=== PATIENT | female | born 1975 | race Caucasian/White ===

== ENCOUNTER 2019-04-10 18:53 | Inpatient (IN) | payer OTHER ==
[~2019-04-10] VITALS: Ht 170.2 cm; Wt 76.7 kg
[2019-04-10] MEDS ORDERED: ONDANSETRON HCL INJ 2MG/ML 2ML 2 MG/ML VIAL IV STA (19:20)
[2019-04-10] MEDS ORDERED: PANTOPRAZOLE 40 MG 10ML VIAL IV STA (19:20)
[2019-04-10] MEDS ORDERED: SODIUM CHLORIDE 0.9% 1000ML 1,000 ML IV STA ×2 (19:20→19:48)
[2019-04-10] MEDS ORDERED: PANTOPRAZOLE 40 MG 10ML VIAL ONE (19:26)
[2019-04-10] MEDS ORDERED: ONDANSETRON HCL INJ 2MG/ML 2ML 2 MG/ML VIAL ONE (19:26)
[2019-04-10] MEDS ORDERED: SODIUM CHLORIDE 0.9% 1000ML 1,000 ML ONE (19:26)
[2019-04-10 19:27] LABS: BASOPHILS % 0.2 % (0.0-1.0); EOSINOPHILS # (AUTO) 0.1 (0.0-0.4); EOSINOPHILS % 0.3 % (0.0-6.0); HEMATOCRIT 36.2 % (34.2-44.1); HEMOGLOBIN 12.1 g/dL (12.0-16.0); LYMPHOCYTES # (AUTO) 0.7 (1.0-3.2); LYMPHOCYTES % 5.1 % (18.0-39.1); MEAN CORPUSCULAR HEMOGLOBIN 27.9 pg (28-32); MEAN CORPUSCULAR HGB CONC 33.4 g/dL (31-35); MEAN CORPUSCULAR VOLUME 83.6 fL (81-99); MONOCYTES # (AUTO) 1.5 (0.2-0.8); MONOCYTES % 10.2 % (4.4-11.3); NEUTROPHILS # (AUTO) 11.9 (2.1-6.9); NEUTROPHILS % 83.2 % (38.7-80.0); RED BLOOD COUNT 4.33 x10e6/uL (3.6-5.1)
[2019-04-10 19:29] LABS: PLATELET COUNT 69 x10e3/uL (140-360)
[2019-04-10 19:30] LABS: CLARITY,URINE CLOUDY (CLEAR); COLOR,URINE YELLOW (YELLOW)
[2019-04-10 19:31] LABS: BILIRUBIN,URINE 1+ (NEGATIVE); KETONES,URINE NEGATIVE (NEGATIVE); LEUKOCYTE ESTERASE ,URINE 2+ (NEGATIVE); NITRITE,URINE NEGATIVE (NEGATIVE); PROTEIN,URINE DIPSTICK 2+ (NEGATIVE); URINE UROBILINOGEN 0.2 mg/dL (0.2 - 1)
[2019-04-10 19:43] LABS: INR 1.01; PROTHROMBIN TIME 13.8 seconds (11.9-14.5)
[2019-04-10 19:44] LABS: BACTERIA,URINE MANY /HPF; EPITHELIAL CELLS,URINE FEW /LPF
[2019-04-10 19:48] LABS: ALBUMIN 2.1 g/dL (3.5-5.0); ALBUMIN/GLOBULIN RATIO 0.5 (0.8-2.0); ANION GAP 19.7 mmol/L (8-16); CALCIUM 8.8 mg/dL (8.4-10.2); CREATININE, SERUM 7.02 mg/dL (0.57-1.11); POTASSIUM 3.7 mmol/L (3.5-5.1)
[2019-04-10] MEDS ORDERED: KETOROLAC TROMETHAMINE 30 MG/ML VIAL IV STA (19:48)
[2019-04-10 19:49] LABS: MAGNESIUM 2.3 MG/DL (1.3-2.1)
[2019-04-10 19:56] LABS: CREATINE KINASE MB 0.7 ng/mL (0-5.0)
[2019-04-10] MEDS ORDERED: SODIUM BICARBONATE 8.4% 75 ML in SODIUM CHLORIDE 0.45% 1,000 ML IV SCH (20:45)
--- NOTE | 2019-04-10 20:54 | Diagnostic Imaging Report ---
EXAM: CT Abdomen and Pelvis without contrast INDICATION: Pelvis. Vomiting. Renal failure. Chest pain. Appendectomy. COMPARISON: None. TECHNIQUE: Abdomen and pelvis were scanned utilizing a multidetector helical scanner from the lung base to the pubic symphysis without administration of IV contrast. Coronal and sagittal reformations were obtained. Routine protocol was performed. IV CONTRAST: None ORAL CONTRAST: Water RADIATION DOSE: Total DLP: 499 mGy*cm Estimated effective dose: (DLP x 0.015 x size factor) mSv. Dose modulation, iterative reconstruction and weight base adjustment of the MA/KV was utilized to reduce the patient dose to as low as reasonably achievable COMPLICATIONS: None FINDINGS: LINES and TUBES: Breast implants. The right breast implant is collapsed. LOWER THORAX: Unremarkable HEPATOBILIARY: No focal hepatic lesions. No biliary ductal dilation. GALLBLADDER: Gallstones in the lumen of the gallbladder. No wall thickening. SPLEEN: No splenomegaly. PANCREAS: No focal masses or ductal dilatation. ADRENALS: No adrenal nodules KIDNEYS/URETERS: Kidneys enhance symmetrically. No hydronephrosis. No cystic or solid mass lesions. No stones. Perinephric fat stranding could be due to chronic medical renal disease GI TRACT: No abnormal distention, wall thickening, or evidence of bowel obstruction. Scattered diverticulosis without evidence of diverticulitis PELVIC ORGANS/BLADDER: 4.1 cm right ovary cyst. LYMPH NODES: No lymphadenopathy. VESSELS: Unremarkable. PERITONEUM / RETROPERITONEUM: No free air. Small amount of ascites most pronounced in the pelvis BONES: Scattered degenerative changes most pronounced in the lumbar spine. SOFT TISSUES: Periumbilical hernia with small nonspecific fluid collection. IMPRESSION: 1. 4.1 cm right ovarian cyst. Pelvic ultrasound recommended for further evaluation. 2. Scattered diverticulosis without evidence of diverticulitis. 3. Gallstones. 4. Perinephric fat stranding could be due to chronic medical renal disease. Small amount of ascites most pronounced in the pelvis. 5. Signed by: Dr. Tyrese Flores M.D. on 04/10/2019 8:50 PM
[2019-04-10] MEDS: CEFTRIAXONE SOD 1 GM/NS 50 ML 50 ML IV SCH (20:57)
--- NOTE | 2019-04-10 20:57 | Diagnostic Imaging Report ---
EXAMINATION: CHEST 2 VIEWS INDICATION: Chest pain ^cp ^20190410 ^2044 COMPARISON: None FINDINGS: TUBES and LINES: None. LUNGS: Lungs are well inflated. Lungs are clear. There is no evidence of pneumonia or pulmonary edema. PLEURA: No pleural effusion or pneumothorax. HEART AND MEDIASTINUM: The cardiomediastinal silhouette is unremarkable. BONES AND SOFT TISSUES: No acute osseous lesion. Soft tissues are unremarkable. UPPER ABDOMEN: No free air under the diaphragm. IMPRESSION: No acute thoracic abnormality. Signed by: Dr. Tyrese Flores M.D. on 04/10/2019 8:54 PM
--- OUTSIDE RECORDS SUMMARY | 2019-04-10 21:42 | XMS REPORT ---
Author Author [facility] Address Unknown Phone Unavailable Care Team Providers Care Registered Nursing Professor Name Role Phone Simin ALEJANDRE Unavailable Unavailable Problems This patient has no known problems. Allergies, Adverse Reactions, Alerts This patient has no known allergies or adverse reactions. Medications This patient has no known medications. Results Test Description Test Time Test Comments Text Results Atomic Results Result Comments CHEST 2 VIEWS 2019-04-10 20:50:00 [facility] [address] [place] [address] Patient Name: ZA NAPOLES MR #: [id number] : 1975 Age/Sex: 44/F Req #: [id number] [facility] Physician: Ordered by: KAYLEIGH ALEJANDRE MD Report #: [id number] Location: ER Room/Bed: Procedure: [id number] DX/CHEST 2 VIEWS Exam Date: 04/10/19 Exam Time: 2044 REPORT STATUS: Signed EXAMINATION: CHEST 2 VIEWS INDICATION: Chest pain cp 20190410 COMPARISON: None FINDINGS: TUBES and LINES: None. LUNGS: Lungs are well inflated. Lungs are clear. There is no evidence of pneumonia or pulmonary edema. PLEURA: No pleural effusion or pneumothorax. HEART AND MEDIASTINUM: The cardiomediastinal silhouette is unremarkable. BONES AND SOFT TISSUES: No acute osseous lesion. Soft tissues are unremarkable. UPPER ABDOMEN: No free air under the diaphragm. IMPRESSION: No acute thoracic abnormality. Signed by: Dr. Tyrese Flores M.D. on 04/10/2019 8:54 PM Dictated By: TYRESE FLORES MD, MD 53 Transcribed By: DOUG on 04/10/192053 COPY TO: KAYLEIGH ALEJANDRE MD CT ABDOMEN/PELVIS WO 2019-04-10 20:42:00 [place] [id number] Patient Name: ZA NAPOLES MR #: [id number] : 1975 Age/Sex: 44/F Req #: [id number] Adm Physician: Ordered by: KAYLEIGH ALEJANDRE MD Report #: [id number] Location: ER Room/Bed: Procedure: [id number] CT/CT ABDOMEN/PELVIS WO Exam Date: Exam Time: REPORT STATUS: Signed EXAM: CT Abdomen and Pelvis without contrast INDICATION: Pelvis. Vomiting. Renal failure. Chest pain. Appendectomy. COMPARISON: None. TECHNIQUE: Abdomen and pelvis were scanned utilizing a multidetector helical scanner from the lung base to the pubic symphysis without administration of IV contrast. Coronal and sagittal reformations were obtained. Routine protocol was performed. IV CONTRAST: None ORAL CONTRAST: Water RADIATION DOSE: Total DLP: 499 mGy*cm Estimated effective dose: (DLP x 0.015 x size factor) mSv. Dose modulation, iterative reconstruction and weight base adjustment of the MA/KV was utilized to reduce the patient dose to as low as reasonably achievable COMPLICATIONS: None FINDINGS: LINES and TUBES: Breast implants. The right breast implant is collapsed. LOWER THORAX: Unremarkable HEPATOBILIARY: No focal hepatic lesions. No biliary ductal dilation. GALLBLADDER: Gallstones in the lumen of the gallbladder. No wall thickening. SPLEEN: No splenomegaly. PANCREAS: No focal masses or ductal dilatation. ADRENALS: No adrenal nodules KIDNEYS/URETERS: Kidneys enhance symmetrically. No hydronephrosis. No cystic or solid mass lesions. No stones. Perinephric fat stranding could be due to chronic medical renal disease GI TRACT: No abnormal distention, wall thickening, or evidence of bowel obstruction. Scattered diverticulosis without evidence of diverticulitis PELVIC ORGANS/BLADDER: 4.1 cm right ovary cyst. LYMPH NODES: No lymphadenopathy. VESSELS: Unremarkable. PERITONEUM / RETROPERITONEUM: No free air. Small amount of ascites most pronounced in the pelvis BONES: Scattered degenerative changes most pronounced in the lumbar spine. SOFT TISSUES: Periumbilical hernia with small nonspecific fluid collection. IMPRESSION: 1. 4.1 cm right ovarian cyst. Pelvic ultrasound recommended for further evaluation. 2. Scattered diverticulosis without evidence of diverticulitis. 3. Gallstones. 4. Perinephric fat stranding could be due to chronic medical renal disease. Small amount of ascites most pronounced in the pelvis. 5. Signed by: Dr. Tyrese Flores M.D. on 04/10/2019 8:50 PM Dictated By: TYRESE FLORES MD, MD 49 Transcribed By: DOUG on 04/10/192049 COPY TO: KAYLEIGH ALEJANDRE MD
--- NOTE | 2019-04-10 21:51 | NUR ---
REPORT RECEIVED FROM ABRIL CUMMINGS IN ER,PER REPORT FROM ABRIL CONSULT TO DR MÁRQUEZ ALREADY CALLED AND ER DOCTOR AWARE OF THE D DIMER RESULT.
[2019-04-10] MEDS ORDERED: ACETAMINOPHEN 1000 MG/100 ML IV PRN (22:00)
[2019-04-10 22:17] VITALS: BP 147/68
[2019-04-10] MEDS: ONDANSETRON HCL INJ 2MG/ML 2ML 2 MG/ML VIAL IV PRN (22:46)
[2019-04-10] MEDS: MORPHINE SULFATE 2 MG/ML SYR 1ML IV PRN (22:48)
[2019-04-10] MEDS ORDERED: ZOLPIDEM TART12.5 MG PO (23:00)
[2019-04-10] MEDS ORDERED: PROMETHAZINE HC25 M1 PO (23:00)
[2019-04-10] MEDS ORDERED: NITROFURANTOIN100 MG PO (23:00)
[2019-04-10] MEDS ORDERED: IBUPROFEN400 MG PO (23:00)
[2019-04-10] MEDS ORDERED: TIZANIDINE HCL4 MG PO (23:00)
[2019-04-10 23:06] VITALS: BP 147/68
[2019-04-11] VITALS (7 sets, daily range): BP systolic 123–134; BP diastolic 58–79
[2019-04-11] MEDS: MORPHINE SULFATE 2 MG/ML SYR 1ML IV PRN (02:14)
[2019-04-11] MEDS: ONDANSETRON HCL INJ 2MG/ML 2ML 2 MG/ML VIAL IV PRN (02:54)
[2019-04-11 03:30] LABS: BASOPHILS % 0.2 % (0.0-1.0); EOSINOPHILS % 0.1 % (0.0-6.0); HEMATOCRIT 35.1 % (34.2-44.1); HEMOGLOBIN 11.9 g/dL (12.0-16.0); LYMPHOCYTES # (AUTO) 0.7 (1.0-3.2); LYMPHOCYTES % 4.7 % (18.0-39.1); MEAN CORPUSCULAR HEMOGLOBIN 28.2 pg (28-32); MEAN CORPUSCULAR HGB CONC 33.9 g/dL (31-35); MEAN CORPUSCULAR VOLUME 83.2 fL (81-99); MONOCYTES # (AUTO) 1.4 (0.2-0.8); MONOCYTES % 9.7 % (4.4-11.3); NEUTROPHILS # (AUTO) 11.8 (2.1-6.9); NEUTROPHILS % 83.3 % (38.7-80.0); PLATELET COUNT 61 x10e3/uL (140-360); RED BLOOD COUNT 4.22 x10e6/uL (3.6-5.1); RED CELL DISTRIBUTION WIDTH 15.2 % (11.7-14.4)
[2019-04-11 03:44] LABS: ALBUMIN 1.8 g/dL (3.5-5.0); ALBUMIN/GLOBULIN RATIO 0.5 (0.8-2.0); ANION GAP 20.4 mmol/L (8-16); CREATININE, SERUM 6.5 mg/dL (0.57-1.11); POTASSIUM 3.4 mmol/L (3.5-5.1)
[2019-04-11] MEDS: HYDROMORPHONE 1MG/1ML INJ IV PRN ×5 (06:47→23:30)
--- NOTE | 2019-04-11 07:13 | NUR ---
REPORT GIVEN TO ONCOMING NURSE.WALKING ROUNDS MADE.PT RESTING IN BED WITH NO S/S OF DISTRESS.
[2019-04-11] MEDS: CEFTRIAXONE SOD 1 GM/NS 50 ML 50 ML IV SCH ×2 (08:58→20:25)
[2019-04-11] MEDS: PROMETHAZINE 25MG/ NS 50ML (IV) IV PRN ×4 (09:41→23:30)
[2019-04-11] MEDS: SODIUM BICARBONATE 8.4% 75 ML in SODIUM CHLORIDE 0.45% 1,000 ML IV SCH ×2 (09:45→20:25)
[2019-04-11 11:53] LABS: CREATINE KINASE < 7 IU/L (29-168)
--- NOTE | 2019-04-11 13:38 | NUR ---
Nutrition Intervention Note RD Recommendation(s) for Physician: -ADAT to GI soft. -Consider renal restriction pending renal lab trends. Plan of Care: RD following, monitoring for tolerance and adequacy. Ensure Clear BID. Nutrition reason for involvement: MST-4 RD Assessment 04/11: 44 YOF admitted for acute renal failure, dehydration with PMH listed below. Pt was seen lying in bed with at bedside. Clear liquid tray was observed next to her, pt is on IVF. The pt reported that she can not keep anything down and she has had N/V since last Sunday. Pt reported she wanted to try the Ensure clear supplement, spoke to nurse about recommendation. No notes documented within EMR as of now, pt was admitted yesterday. Pt reported her weight has been stable recently and denied C/D/chewing or swallowing issues as well as any food allergies. Will continue to monitor diet advancement and tolerance. Principal Problems/Diagnoses: acute renal failure, dehydration PMH: H and P pending GI: flatus: present, LBM: 04/11 Skin: no pressure ulcer reported Labs: 04/11: Na 132, K 3.4, CO2 14, BUN 75, Creat 6.50, Ca 8.0, Alk phos 323, Creat kinase < 7 IVF: sodium bicarb at 100 ml/hr Meds: abx, zofran Ht:67 in W170 lbs BMI: 26.6 kg/m^2 IBW:148 lbs Malnutrition Evaluation (04/11) The patient does not meet criteria for a specified degree of malnutrition at this time. Will re-evaluate at follow-up as appropriate. Energy intake: <50% of estimated energy requirements for >5 days Nutrition Prescription (Diet Order): clear liquids Estimated Nutritional Needs: Calories: 1386 kcal-1694 kcal(18-22) Weight used : CBW 77 kg Protein : 77-115 gram/protein/day(1-1.5) Weight used: CBW 77 kg Diet Adequacy: Not meeting calorie needs, Not meeting protein needs Diet Education Needs Assessment: Diet education not indicated, patient on temporary/transition diet. Nutrition Care Level: mod Nutrition Diagnosis: Inadequate energy intake related to medical condition as evidenced by the pt being on clear liquids. Goal: Patient will meet 75-100% of estimated needs by follow up Progress: N/A Interventions: -fiber -modified diet, Commercial beverage, IVF Monitoring/Evaluation: -Total energy intake, Total protein intake, IVF, Modified diet, Liquid supplement, Weight change Signed: Kelsey Sanchez RD, LD
--- NOTE | 2019-04-11 17:02 | Consultation ---
DATE OF CONSULTATION: 04/11/2019 REQUESTING PHYSICIAN: Maximilian arias MD REASON FOR CONSULTATION: Acute kidney injury. Thank you for allowing us to participate in Mrs. Dejesus's care. HISTORY OF PRESENT ILLNESS: This is a 44-year-old female on chronic NSAIDs, came with abdominal pain and flank pain. Recently had a urinary tract infection that did not respond to outpatient therapy. Recently had nausea, vomiting, and diarrhea. She has chronic back issues on top of that. She had been unable to keep anything down in the last day or two due to worsening of the GI symptoms. Flank pain is more on the right than the left. CT scan does not show any hydronephrosis. She thinks she may be somewhat better and may be making more urine. She says her urine output was subjectively decreased in the last 2 to 3 days. No swelling is noted. She has been started on IV fluids during evaluation here. It was noted that she had low platelets of 69,000. Sodium of 132, potassium 3.4, serum CO2 of 14, creatinine 6.5, BUN 75. Alkaline phosphatase was 338, however, AST and ALT were not elevated. Albumin was only 1.8. Lipase was normal and total bilirubin is 1.1 and not elevated. HOME MEDICATION: Ibuprofen 800 t.i.d., nitrofurantoin, promethazine, tizanidine, Ambien. Currently on IV fluids and bicarbonate. SOCIAL HISTORY: Does not abuse alcohol or smoke. FAMILY HISTORY: No kidney problems. REVIEW OF SYSTEMS: CONSTITUTIONAL: Feels wheezy and nausea, vomiting, somewhat better with the Phenergan. CARDIAC: No angina, syncope. : Has some dysuria. MUSCULOSKELETAL: Chronic backache with flank pain. Now being worse. NEURO: Denied headaches, seizures, but had some weakness. HEENT: Had some nasal drainage and thought she had white spots. Negative for flu. PHYSICAL EXAMINATION: GENERAL: She is sitting up, in no distress. VITAL SIGNS: Temperature 36.3, pulse 85, blood pressure 125/69. HEENT: Oral mucosa is dry. NECK: Neck vein is flat. CHEST: Clear. Bilateral breath sounds equal. ABDOMEN: Soft. EXTREMITIES: No edema. NEURO: Appears to be alert, appropriate. Speech is normal. SKIN: No ulcers or sores. Skin is warm and dry. No purpura is noted. LABORATORY DATA: Check LDH. ASSESSMENT: 1. Acute kidney injury, likely causes volume depletion with tubular necrosis from the infection. There were many bacteria in the blood. Additionally, the nonsteroidal anti-inflammatories can also cause acute kidney injury and their effect was likely superimposed. On the bright side, the creatinine is slowly coming down. Output seems to be improving. 2. Hypokalemia from decreased intake, GI losses. 3. Metabolic acidosis from the diarrhea as well as decreased GFR, anion gap is high consistent with that as well as ketones from decreased intake. 4. Mild hyponatremia from volume depletion. This point does not appear to be hemolyzing as the hemoglobin is quite good at 11.9. The platelets being lower somewhat concerning and we will follow that closely. Check an LDH. 5. Volume status is decreased. 6. Blood pressure is reasonable. PLAN: 1. Continue with IV fluids. She has been started on half NS with 75 mEq/L of bicarbonate. This is reasonable. 2. Had p.o. potassium. 3. Nausea, control. 4. Avoid Ketoralac and other NSAIDs. 5. If renal function does not improve, we may have to consider biopsy, especially given the NSAID use and potential for allergic interstitial nephritis, which can happen without peripheral or eosinophils being increased or without any eosinophils in the urine. 6. Of note, this streptococcal screen was negative. 7. Serial chemistries. 8. No emergent need for dialysis. Thank you for allowing us to participate in Ms. Dejesus's care. We will follow along. MD FILIBERTO Gleason/MODL /[id number]
--- NOTE | 2019-04-11 19:15 | NUR ---
patient received awake, alert, lying quietly in bed. no c/o pain noted. ivf continue to infuse without difficulty. patient remains on clear liquid diet and patient verbalizes understanding of this. pm assessment complete. patient instructed to call for assistance when needed.
[2019-04-11 19:33] LABS: CREATINE KINASE MB 0.9 ng/mL (0-5.0)
--- NOTE | 2019-04-11 23:30 | NUR ---
patient medicated with dilaudid 1mg ivp and phenergan 25mg iv for c/o abd/lower back pain 01/08 and nausea at this time per patient request.
[2019-04-12] VITALS (7 sets, daily range): BP systolic 135–158; BP diastolic 70–91
--- NOTE | 2019-04-12 | NUR ---
patient appears to be resting quietly. no further c/o pain noted. ivf continue to infuse without difficulty. remains at the bedside.
[2019-04-12] MEDS: PROMETHAZINE 25MG/ NS 50ML (IV) IV PRN ×4 (05:00→19:50)
[2019-04-12] MEDS: HYDROMORPHONE 1MG/1ML INJ IV PRN ×5 (05:00→19:50)
--- NOTE | 2019-04-12 05:00 | NUR ---
patient medicated with dilaudid 1mg ivp and phenergan 25mg iv for c/o lower abd/back pain 01/08 at this time per patient request. ivf continue to infuse without difficulty.
--- NOTE | 2019-04-12 06:00 | NUR ---
here to see patient. am labs ordered. wants to be called am labs when resulted.
[2019-04-12 06:59] LABS: ANION GAP 19.4 mmol/L (8-16); CALCIUM 7.4 mg/dL (8.4-10.2); CREATININE, SERUM 6.04 mg/dL (0.57-1.11); MAGNESIUM 2.2 MG/DL (1.3-2.1); PHOSPHORUS 5.7 MG/DL (2.3-4.7); POTASSIUM 3.4 mmol/L (3.5-5.1)
[2019-04-12 07:00] LABS: BASOPHILS % 0.2 % (0.0-1.0); EOSINOPHILS # (AUTO) 0.1 (0.0-0.4); EOSINOPHILS % 0.6 % (0.0-6.0); HEMATOCRIT 33.1 % (34.2-44.1); HEMOGLOBIN 11.2 g/dL (12.0-16.0); LYMPHOCYTES # (AUTO) 0.6 (1.0-3.2); LYMPHOCYTES % 6.1 % (18.0-39.1); MEAN CORPUSCULAR HEMOGLOBIN 28.1 pg (28-32); MEAN CORPUSCULAR HGB CONC 33.8 g/dL (31-35); MONOCYTES # (AUTO) 0.8 (0.2-0.8); NEUTROPHILS # (AUTO) 8.4 (2.1-6.9); PLATELET COUNT 96 x10e3/uL (140-360); RED BLOOD COUNT 3.99 x10e6/uL (3.6-5.1); RED CELL DISTRIBUTION WIDTH 15.4 % (11.7-14.4)
[2019-04-12 07:21] LABS: ALBUMIN 1.7 g/dL (3.5-5.0); ALBUMIN/GLOBULIN RATIO 0.5 (0.8-2.0)
[2019-04-12] MEDS: SODIUM BICARBONATE 8.4% 75 ML in SODIUM CHLORIDE 0.45% 1,000 ML IV SCH (07:45)
[2019-04-12] MEDS: CEFTRIAXONE SOD 1 GM/NS 50 ML 50 ML IV SCH ×2 (08:50→21:00)
[2019-04-12] MEDS ORDERED: POTASSIUM CHLORIDE 20 MEQ TAB CR PO STA (09:18)
[2019-04-12] MEDS ORDERED: POTASSIUM CHLORIDE 10 MEQ in SODIUM CHLORIDE 0.9% 1000ML 1,000 ML IV SCH (09:45)
[2019-04-12] MEDS: PANTOPRAZOLE 40 MG 10ML VIAL IV SCH (11:14)
[2019-04-12] MEDS: POTASSIUM CHLORIDE 10 MEQ in SODIUM CHLORIDE 0.9% 1000ML 1,000 ML IV SCH ×2 (11:14→22:10)
[2019-04-12] MEDS: CHLORASEPTIC SPRAY 177 ML BTL MM PRN (11:15)
[2019-04-12] MEDS ORDERED: POTASSIUM CHLORIDE 20 MEQ TAB CR PO ONE (11:30)
--- NOTE | 2019-04-12 11:56 | NUR ---
PT C/O PAIN, ALSO COMPLAINED SHE ALREADY ANSWERED ALL THESE QUESTIONS, DID NOT WANT TO PARTICIPATE IN DPA
[2019-04-12] MEDS: ONDANSETRON HCL INJ 2MG/ML 2ML 2 MG/ML VIAL IV PRN ×2 (12:05→16:51)
[2019-04-12] MEDS: ACETAMINOPHEN 325 MG TAB PO PRN (14:23)
--- NOTE | 2019-04-12 19:00 | NUR ---
patient received awake, alert, lying quietly in bed. no c/o pain noted at this time. ivf continue to infuse without difficulty. pm assessment complete. patient instructed to call for assistance when needed.
--- NOTE | 2019-04-12 19:50 | NUR ---
patient medicated for c/o pain per orders at this time per patients request.
[2019-04-12] MEDS: ZOLPIDEM TARTRATE 10 MG TAB PO PRN (22:10)
[2019-04-13] VITALS (8 sets, daily range): BP systolic 130–159; BP diastolic 86–95
[2019-04-13] MEDS: PROMETHAZINE 25MG/ NS 50ML (IV) IV PRN ×4 (00:25→19:47)
[2019-04-13] MEDS: HYDROMORPHONE 1MG/1ML INJ IV PRN ×7 (00:25→23:21)
--- NOTE | 2019-04-13 00:25 | NUR ---
patient medicated for c/o lower abd/lower back pain 01/08 at this time per patients request.
--- NOTE | 2019-04-13 03:45 | NUR ---
patient medicated for c/o lower abd/back pain 01/08 per orders at this time per patients request. patient lying quietly in bed. ivf continue to infuse without difficulty. remains at bedside.
--- NOTE | 2019-04-13 06:00 | NUR ---
patient medicated with phenergan 25mg iv for c/o nausea at this time per patients request.
[2019-04-13] MEDS: ACETAMINOPHEN 325 MG TAB PO PRN (06:10)
--- NOTE | 2019-04-13 06:10 | NUR ---
patient medicated with tylenol 650mg po for c/o headache at this time per patient request.
[2019-04-13 06:35] LABS: BASOPHILS % 0.3 % (0.0-1.0); EOSINOPHILS # (AUTO) 0.1 (0.0-0.4); HEMATOCRIT 34.1 % (34.2-44.1); HEMOGLOBIN 11.4 g/dL (12.0-16.0); LYMPHOCYTES # (AUTO) 0.6 (1.0-3.2); LYMPHOCYTES % 6.2 % (18.0-39.1); MEAN CORPUSCULAR HEMOGLOBIN 27.9 pg (28-32); MEAN CORPUSCULAR HGB CONC 33.4 g/dL (31-35); MEAN CORPUSCULAR VOLUME 83.4 fL (81-99); MONOCYTES # (AUTO) 0.9 (0.2-0.8); MONOCYTES % 8.3 % (4.4-11.3); NEUTROPHILS # (AUTO) 8.4 (2.1-6.9); NEUTROPHILS % 81.8 % (38.7-80.0); PLATELET COUNT 131 x10e3/uL (140-360); RED BLOOD COUNT 4.09 x10e6/uL (3.6-5.1); RED CELL DISTRIBUTION WIDTH 15.5 % (11.7-14.4)
[2019-04-13 06:57] LABS: ANION GAP 16.8 mmol/L (8-16); CALCIUM 7.6 mg/dL (8.4-10.2); CREATININE, SERUM 4.61 mg/dL (0.57-1.11); POTASSIUM 3.8 mmol/L (3.5-5.1)
[2019-04-13] MEDS: POTASSIUM CHLORIDE 10 MEQ in SODIUM CHLORIDE 0.9% 1000ML 1,000 ML IV SCH ×2 (09:17→21:24)
[2019-04-13] MEDS: PANTOPRAZOLE 40 MG 10ML VIAL IV SCH (09:19)
[2019-04-13] MEDS: ONDANSETRON HCL INJ 2MG/ML 2ML 2 MG/ML VIAL IV PRN ×2 (09:19→17:06)
[2019-04-13] MEDS: CHLORASEPTIC SPRAY 177 ML BTL MM PRN (09:20)
[2019-04-13] MEDS: CEFTRIAXONE SOD 1 GM/NS 50 ML 50 ML IV SCH ×2 (09:20→20:31)
--- NOTE | 2019-04-13 19:23 | NUR ---
Received bedside report from night nurse. Patient resting in bed, no s/s of distress at this time. All safety measures in place. Will continue to monitor.
[2019-04-13] MEDS: ZOLPIDEM TARTRATE 10 MG TAB PO PRN (23:21)
[2019-04-14] VITALS (9 sets, daily range): BP systolic 149–166; BP diastolic 75–93
[2019-04-14] MEDS: ACETAMINOPHEN 325 MG TAB PO PRN ×2 (01:22→18:43)
[2019-04-14] MEDS: HYDROMORPHONE 1MG/1ML INJ IV PRN ×6 (05:32→23:03)
[2019-04-14 06:28] LABS: BASOPHILS % 0.4 % (0.0-1.0); EOSINOPHILS # (AUTO) 0.1 (0.0-0.4); EOSINOPHILS % 1.9 % (0.0-6.0); HEMATOCRIT 31.3 % (34.2-44.1); HEMOGLOBIN 10.6 g/dL (12.0-16.0); LYMPHOCYTES # (AUTO) 0.7 (1.0-3.2); LYMPHOCYTES % 8.9 % (18.0-39.1); MEAN CORPUSCULAR HEMOGLOBIN 28.4 pg (28-32); MEAN CORPUSCULAR HGB CONC 33.9 g/dL (31-35); MEAN CORPUSCULAR VOLUME 83.9 fL (81-99); MONOCYTES # (AUTO) 0.7 (0.2-0.8); MONOCYTES % 9.1 % (4.4-11.3); NEUTROPHILS # (AUTO) 5.7 (2.1-6.9); PLATELET COUNT 199 x10e3/uL (140-360); RED BLOOD COUNT 3.73 x10e6/uL (3.6-5.1); RED CELL DISTRIBUTION WIDTH 15.5 % (11.7-14.4)
[2019-04-14 06:41] LABS: ALBUMIN 1.9 g/dL (3.5-5.0); ALBUMIN/GLOBULIN RATIO 0.5 (0.8-2.0); ANION GAP 14.8 mmol/L (8-16); CALCIUM 8.6 mg/dL (8.4-10.2); CREATININE, SERUM 3.27 mg/dL (0.57-1.11); POTASSIUM 3.8 mmol/L (3.5-5.1)
--- NOTE | 2019-04-14 07:04 | NUR ---
Bedside report given to day nurse. Patient resting in bed, no s/s of distress or c/o pain at this time. All safety measures in place. Family at bedside.
[2019-04-14] MEDS: PROMETHAZINE 25MG/ NS 50ML (IV) IV PRN ×3 (08:20→19:50)
[2019-04-14] MEDS: PANTOPRAZOLE 40 MG 10ML VIAL IV SCH ×2 (09:47→23:17)
[2019-04-14] MEDS: POTASSIUM CHLORIDE 10 MEQ in SODIUM CHLORIDE 0.9% 1000ML 1,000 ML IV SCH (09:47)
[2019-04-14] MEDS: CEFTRIAXONE SOD 1 GM/NS 50 ML 50 ML IV SCH ×2 (09:47→21:20)
[2019-04-14] MEDS: DIPHENHYDRAMINE HCL 25 MG CAP PO PRN (09:56)
[2019-04-14] MEDS: ONDANSETRON HCL INJ 2MG/ML 2ML 2 MG/ML VIAL IV PRN ×2 (12:06→23:03)
--- NOTE | 2019-04-14 14:32 | Diagnostic Imaging Report ---
Ventilation/perfusion lung scan Clinical Information: 44 F with acute renal failure and SOB x 4-5 days Comparison: Chest radiograph Discussion: Xenon-133 gas 12.4 mCi was administered via inhalation. Dynamic images of the lungs in the posterior projection were obtained through single breath, equilibrium, and washout phases. Distribution of tracer activity is mildly irregular throughout the lungs. There are no segmental ventilatory defects. Washout of tracer is mildly delayed with no air trapping. Perfusion images of the lungs were obtained in multiple projections following intravenous administration of approximately 6.6 mCi of Tc-99m MAA. Distribution of tracer is mildly irregular throughout the lungs. The contours of the lungs are well demarcated. There are no segmental perfusion defects of any size. The cardiomediastinal silhouette is unremarkable. Impression: Scan findings represent a VERY LOW probability for acute pulmonary embolic disease based on the PIOPED II criteria. Scan evidence of obstructive lung disease. Signed by: Dr. Clare Santiago M.D. on 04/14/2019 2:29 PM
[2019-04-14] MEDS: SODIUM BICARBONATE 8.4% 75 ML in SODIUM CHLORIDE 0.45% 1,000 ML IV SCH (15:20)
[2019-04-14 15:30] LABS: CREATININE,URINE RANDOM 38.64 mg/dL (47-110); TOTAL PROTEIN, URINE 19.7 mg/dL (1-14)
[2019-04-14 15:34] LABS: PROTEIN/CREATININE RATIO,URINE 0.51
--- NOTE | 2019-04-14 16:29 | Diagnostic Imaging Report ---
Renal ultrasound with Doppler examination, 04/14/2019. History: Perinephric stranding on recent CT. Concern for renal vein thrombosis. Comparison: CT abdomen and pelvis without contrast 04/10/2019. Discussion: Transverse and longitudinal imaging of the kidneys demonstrates normal renal sizes and echogenicity bilaterally with the right kidney measuring 11.6 and the left kidney measuring 12.1 cm in length. There is no evidence of hydronephrosis, renal calculus, or solid mass. Interrogation of the proximal and distal renal arteries using grayscale, color Doppler, and spectral wave form analysis was performed. Findings are as follows: Right: Proximal renal artery: Peak systolic velocity = 19.3 cm/sec, RAR (renal artery aortic ratio) = 0.1 Segmental and interlobar renal arteries: Normal appearing waveforms are present. Right renal vein is patent. Left: Proximal renal artery: Peak systolic velocity = 50.2 cm/sec, RAR (renal artery aortic ratio) = 0.1 Segmental and interlobar renal arteries: Normal appearing waveforms are present. Left renal vein is patent. IVC is patent. IMPRESSION: 1. Normal appearance of the kidneys. 2. No evidence of renal artery stenosis or renal vein thrombosis. Signed by: Bill Peck on 04/14/2019 4:25 PM
--- NOTE | 2019-04-14 21:20 | NUR ---
PATIENT IS IN STABLE CONDITION, NO SIGNS OF DISTRESS NOTED. AT BEDSIDE, PATIENT COMPLAINS OF PAIN AND NAUSEA AND WAS MEDICATED ORDERED. BED IS IN LOWEST POSITION AND LOCKED, BOTH SIDE RAILS ARE UP, CALL LIGHT WITHIN REACH, WILL CONTINUE TO MONITOR.
[2019-04-14] MEDS: ZOLPIDEM TARTRATE 10 MG TAB PO PRN (23:26)
[2019-04-15] VITALS (8 sets, daily range): BP systolic 136–157; BP diastolic 65–91
[2019-04-15] MEDS: SODIUM BICARBONATE 8.4% 75 ML in SODIUM CHLORIDE 0.45% 1,000 ML IV SCH ×2 (02:38→13:32)
[2019-04-15] MEDS: HYDROMORPHONE 1MG/1ML INJ IV PRN ×4 (02:39→19:32)
[2019-04-15] MEDS: PROMETHAZINE 25MG/ NS 50ML (IV) IV PRN (02:39)
[2019-04-15] MEDS: ONDANSETRON HCL INJ 2MG/ML 2ML 2 MG/ML VIAL IV PRN ×3 (06:00→19:32)
[2019-04-15 06:05] LABS: BASOPHILS % 0.4 % (0.0-1.0); EOSINOPHILS # (AUTO) 0.2 (0.0-0.4); EOSINOPHILS % 2.1 % (0.0-6.0); HEMATOCRIT 31.3 % (34.2-44.1); HEMOGLOBIN 10.1 g/dL (12.0-16.0); LYMPHOCYTES # (AUTO) 0.7 (1.0-3.2); LYMPHOCYTES % 9.2 % (18.0-39.1); MEAN CORPUSCULAR HEMOGLOBIN 27.5 pg (28-32); MEAN CORPUSCULAR HGB CONC 32.3 g/dL (31-35); MEAN CORPUSCULAR VOLUME 85.3 fL (81-99); MONOCYTES # (AUTO) 0.6 (0.2-0.8); MONOCYTES % 7.1 % (4.4-11.3); NEUTROPHILS # (AUTO) 6.1 (2.1-6.9); NEUTROPHILS % 79.4 % (38.7-80.0); PLATELET COUNT 277 x10e3/uL (140-360); RED BLOOD COUNT 3.67 x10e6/uL (3.6-5.1); RED CELL DISTRIBUTION WIDTH 15.2 % (11.7-14.4)
[2019-04-15 06:26] LABS: ALBUMIN 1.9 g/dL (3.5-5.0); ALBUMIN/GLOBULIN RATIO 0.5 (0.8-2.0); ANION GAP 13.4 mmol/L (8-16); CALCIUM 9.1 mg/dL (8.4-10.2); CREATININE, SERUM 2.27 mg/dL (0.57-1.11); POTASSIUM 3.4 mmol/L (3.5-5.1)
[2019-04-15] MEDS: CYCLOBENZAPRINE HCL 10 MG TAB PO SCH ×3 (08:50→21:08)
[2019-04-15] MEDS: CEFTRIAXONE SOD 1 GM/NS 50 ML 50 ML IV SCH ×2 (08:50→21:08)
[2019-04-15] MEDS: PANTOPRAZOLE 40 MG 10ML VIAL IV SCH (08:50)
[2019-04-15] MEDS ORDERED: FUROSEMIDE INJ 10 MG/ML 4 ML VIAL IV ONE (13:30)
[2019-04-15 14:57] LABS: HEMATOCRIT 31.4 % (34.2-44.1); HEMOGLOBIN 10.6 g/dL (12.0-16.0); MEAN CORPUSCULAR HEMOGLOBIN 28.3 pg (28-32); MEAN CORPUSCULAR HGB CONC 33.8 g/dL (31-35); PLATELET COUNT 308 x10e3/uL (140-360); RED BLOOD COUNT 3.74 x10e6/uL (3.6-5.1); RED CELL DISTRIBUTION WIDTH 15.1 % (11.7-14.4)
[2019-04-15 15:10] LABS: ALPHA 2 GLOBULIN URINE PEP 26.1 % (.)
[2019-04-15 15:20] LABS: BILIRUBIN,URINE NEGATIVE (NEGATIVE); CLARITY,URINE SL CLOUDY (CLEAR); COLOR,URINE YELLOW (YELLOW); KETONES,URINE NEGATIVE (NEGATIVE); LEUKOCYTE ESTERASE ,URINE NEGATIVE (NEGATIVE); NITRITE,URINE NEGATIVE (NEGATIVE); PROTEIN,URINE DIPSTICK NEGATIVE (NEGATIVE); URINE UROBILINOGEN 0.2 mg/dL (0.2 - 1)
[2019-04-15 15:28] LABS: BACTERIA,URINE FEW /HPF; EPITHELIAL CELLS,URINE MODERATE /LPF; RBC,URINE 0-5 /HPF (0-5); TRANSITIONAL EPI CELLS,URINE FEW
[2019-04-15 15:40] LABS: CREATININE,URINE RANDOM 40.32 mg/dL (47-110); TOTAL PROTEIN, URINE 16.8 mg/dL (1-14)
[2019-04-15] MEDS: ACETAMINOPHEN 325 MG TAB PO PRN (17:00)
--- NOTE | 2019-04-15 17:09 | Diagnostic Imaging Report ---
Retroperitoneal ultrasound Indication: Acute kidney injury Technique: Select images from retroperitoneal ultrasound provided for interpretation: Comparison: Renal Doppler ultrasound 04/14/2019, CT abdomen/pelvis 04/10/2019. Findings: The right kidney measures 11.0 cm in greatest length. The echotexture is normal. There is no evidence for mass. Mild pelviectasis. This persists after voiding. No renal calculi evident. No adjacent free fluid or fluid collections. The left kidney measures 13.7 cm in greatest length. The echotexture is normal. There is no evidence for mass. There is no collecting system dilatation or evidence of obstruction. No renal calculi evident. No adjacent free fluid or fluid collections. Bladder is well distended and is normal. Calculated bladder volume is 154 cc. No free fluid in the pelvis. Survey images of the liver and spleen demonstrate no abnormalities. IMPRESSION: 1. Mild right pelviectasis. No intrarenal calculi. 2. Normal renal echotexture. 3. Normal bladder. Signed by: Dr. Oscar Betancur MD on 04/15/2019 5:06 PM
--- NOTE | 2019-04-15 19:14 | NUR ---
Received bedside report from day nurse. Patient resting in bed, no s/s of distress at this time. All safety measures in place. Family at bedside. Will continue to monitor.
[2019-04-15 20:58] LABS: EOSINOPHILS % (MANUAL) 1 % (0-7); LYMPHOCYTES % (MANUAL) 11 % (19-48); METAMYELOCYTES % (MANUAL) 1 % (0-0); MONOCYTES % (MANUAL) 2 % (3.4-9.0); MYELOCYTES % (MANUAL) 1 % (0-0); NEUTROPHILS % (MANUAL) 83 % (40-74)
[2019-04-15 20:59] LABS: ANISOCYTOSIS SLIGHT; HYPOCHROMASIA SLIGHT; RBC MORPHOLOGY COMMENT NORMAL
[2019-04-15 21:00] LABS: PLATELET ESTIMATE ADEQUATE; PLATELET MORPHOLOGY COMMENT NORMAL
[2019-04-15] MEDS: ZOLPIDEM TARTRATE 10 MG TAB PO PRN (22:44)
[2019-04-16] VITALS (8 sets, daily range): BP systolic 152–171; BP diastolic 74–85
[2019-04-16] MEDS: SODIUM BICARBONATE 8.4% 75 ML in SODIUM CHLORIDE 0.45% 1,000 ML IV SCH ×2 (00:05→09:48)
[2019-04-16] MEDS: ONDANSETRON HCL INJ 2MG/ML 2ML 2 MG/ML VIAL IV PRN ×2 (04:48→17:30)
[2019-04-16] MEDS: HYDROMORPHONE 1MG/1ML INJ IV PRN ×5 (04:48→22:00)
[2019-04-16 06:52] LABS: ALBUMIN 1.9 g/dL (3.5-5.0); ALBUMIN/GLOBULIN RATIO 0.6 (0.8-2.0); ANION GAP 12.2 mmol/L (8-16); CALCIUM 8.8 mg/dL (8.4-10.2); CREATININE, SERUM 1.56 mg/dL (0.57-1.11); POTASSIUM 3.2 mmol/L (3.5-5.1)
--- NOTE | 2019-04-16 07:00 | NUR ---
RECEIVED PT RESTING QUIETLY. PAIN AT A 6; PT AWARE TO EARLY TO BE MEDICATED
[2019-04-16] MEDS: CEFTRIAXONE SOD 1 GM/NS 50 ML 50 ML IV SCH ×2 (09:00→20:57)
[2019-04-16] MEDS: CYCLOBENZAPRINE HCL 10 MG TAB PO SCH ×3 (09:00→20:58)
[2019-04-16] MEDS: PANTOPRAZOLE 40 MG 10ML VIAL IV SCH (09:00)
[2019-04-16] MEDS ORDERED: POTASSIUM CHLORIDE 20 MEQ TAB CR PO ONE (14:48)
[2019-04-16] MEDS ORDERED: POTASSIUM CHLORIDE 20 MEQ TAB CR PO SCH (15:00)
--- NOTE | 2019-04-16 16:46 | NUR ---
Nutrition Intervention Note RD Recommendation(s) for Physician: -ADAT to GI soft. -If unable to advance diet soon and po intake does not improved, consider parenteral nutrition- consult Nutrition for recommendations. Plan of Care: RD following, monitoring for tolerance and adequacy Nutrition reason for involvement: Follow up RD Assessment 04/16: Pt advanced to full liquid diet, she reports she is only able to tolerate a few bites of each item on her tray, diet lemon-kokhanok soda, and ice chips with the utilization of antiemetics. Pt reports continued N/V with 3 episodes of vomiting or dry heaving daily. Pt denies BM since 04/11. Pt states that she did not tolerate the Ensure Clear, does not want additional supplements. All questions and concerns addressed at time of visit. Pt discussed during am rounds. Chart reviewed. Will monitor and continue to follow. 04/11: 44 YOF admitted for acute renal failure, dehydration with PMH listed below. Pt was seen lying in bed with at bedside. Clear liquid tray was observed next to her, pt is on IVF. The pt reported that she can not keep anything down and she has had N/V since last Sunday. Pt reported she wanted to try the Ensure clear supplement, spoke to nurse about recommendation. No notes documented within EMR as of now, pt was admitted yesterday. Pt reported her weight has been stable recently and denied C/D/chewing or swallowing issues as well as any food allergies. Will continue to monitor diet advancement and tolerance. Principal Problems/Diagnoses: acute renal failure, dehydration PMH: [facility]: flatus: present, LBM: 04/11 Skin: no pressure ulcer reported Labs: 04/16: Na 137, K 3.2, BUN 23, Cr 1.56, Gluc 103 IVF: sodium bicarb at 75 ml/hr Meds: abx, zofran, protonix, dilaudid Ht:67 in W170 lbs BMI: 26.6 kg/m^2 IBW:148 lbs Malnutrition Evaluation (04/11) The patient does not meet criteria for a specified degree of malnutrition at this time. Will re-evaluate at follow-up as appropriate. Energy intake: <50% of estimated energy requirements for >5 days Nutrition Prescription (Diet Order): full liquids Estimated Nutritional Needs: Calories: 1386 kcal-1694 kcal(18-22) Weight used : CBW 77 kg Protein : 77-115 gram/protein/day(1-1.5) Weight used: CBW 77 kg Diet Adequacy: Not meeting calorie needs, Not meeting protein needs Diet Education Needs Assessment: Diet education not indicated, patient on temporary/transition diet. Nutrition Care Level: High- poor intake/diet tolerance x 6 days Nutrition Diagnosis: Inadequate energy intake related to medical condition as evidenced by the pt being on clear liquids. Goal: Patient will meet 75-100% of estimated needs by follow up Progress: Not progressing Diet tolerance: tolerance varies Interventions: -fiber -modified diet, Commercial beverage, IVF Monitoring/Evaluation: -Total energy intake, Total protein intake, IVF, Modified diet, Liquid supplement, Weight change Signed: Madison Platt RD, LD, [facility]
--- NOTE | 2019-04-16 17:30 | NUR ---
DR MÁRQUEZ TO SEE PT. NEW ORDERS GIVEN AND CARRIED OUT.
--- NOTE | 2019-04-16 19:00 | NUR ---
patient received awake, alert, lying quietly in bed. no c/o pain noted. pm assessment complete. patient instructed to call for assistance when needed.
[2019-04-16] MEDS: ZOLPIDEM TARTRATE 10 MG TAB PO PRN (22:00)
[2019-04-16] MEDS: PROMETHAZINE 25MG/ NS 50ML (IV) IV PRN (22:00)
--- NOTE | 2019-04-16 22:00 | NUR ---
patient medicated for lower back pain 01/08 and nausea per orders at this time per patients request.
[2019-04-16] MEDS: DIPHENHYDRAMINE HCL 25 MG CAP PO PRN (22:35)
--- NOTE | 2019-04-16 22:35 | NUR ---
patient medicated for c/o itching per orders at this time per patients request.
[2019-04-17] VITALS (8 sets, daily range): BP systolic 155–176; BP diastolic 75–87
--- NOTE | 2019-04-17 | NUR ---
patient appears to be resting quietly. no c/o pain noted at this time. remains at the bedside.
[2019-04-17] MEDS: ONDANSETRON HCL INJ 2MG/ML 2ML 2 MG/ML VIAL IV PRN ×5 (03:40→23:00)
[2019-04-17] MEDS: HYDROMORPHONE 1MG/1ML INJ IV PRN ×5 (03:40→23:00)
--- NOTE | 2019-04-17 03:40 | NUR ---
patient medicated for c/o lower back pain 01/08 per orders at this time per patients request.
--- NOTE | 2019-04-17 06:50 | NUR ---
RECEIVED PT RESTING. EYES CLOSED RESP EVEN AND UNLABORED
--- NOTE | 2019-04-17 08:25 | NUR ---
DR RAMIREZ TO SEE PT.
--- NOTE | 2019-04-17 08:25 | NUR ---
PT CO PAIN MEDICATED AT THIS TIME. PAIN 02/08
[2019-04-17] MEDS: PANTOPRAZOLE 40 MG 10ML VIAL IV SCH (08:35)
[2019-04-17] MEDS: CYCLOBENZAPRINE HCL 10 MG TAB PO SCH ×3 (08:36→20:45)
[2019-04-17] MEDS: CEFTRIAXONE SOD 1 GM/NS 50 ML 50 ML IV SCH ×2 (08:36→20:45)
[2019-04-17] MEDS: ALLOPURINOL 100 MG TAB PO SCH (08:37)
[2019-04-17] MEDS: DIPHENHYDRAMINE HCL 25 MG CAP PO PRN (14:43)
--- NOTE | 2019-04-17 17:40 | NUR ---
DR MÁRQUEZ TO SEE PT. NEW ORDERS GIVEN
[2019-04-17] MEDS ORDERED: FUROSEMIDE INJ 10 MG/ML 2 ML VIAL IV ONE (18:00)
--- NOTE | 2019-04-17 18:01 | NUR ---
PT CO PAIN 02/08 MEDICATED ORDERED. FAMILY AT SIDE.
--- NOTE | 2019-04-17 19:00 | NUR ---
patient received awake, alert, sitting up in bed. vss. no c/o pain noted. pm assessment complete. patient instructed to call for assistance when needed.
[2019-04-17] MEDS: ZOLPIDEM TARTRATE 10 MG TAB PO PRN (20:45)
[2019-04-17] MEDS: ACETAMINOPHEN 325 MG TAB PO PRN (20:45)
--- NOTE | 2019-04-17 23:00 | NUR ---
patient medicated for c/o lower back/abd pain 7/10 per orders at this time.
[2019-04-18] VITALS: BP 142/78
[2019-04-18] MEDS: HYDROMORPHONE 1MG/1ML INJ IV PRN (03:30)
[2019-04-18] MEDS: ONDANSETRON HCL INJ 2MG/ML 2ML 2 MG/ML VIAL IV PRN ×3 (03:30→19:59)
--- NOTE | 2019-04-18 03:30 | NUR ---
patient medicated for c/o lower back/abd pain 7/10 per orders at this time.
[2019-04-18 04:00] VITALS: BP 164/91
--- NOTE | 2019-04-18 06:00 | NUR ---
Dr. Livingston here to see patient. telemetry d/c'd at this time per orders.
[2019-04-18 06:32] LABS: BASOPHILS # (AUTO) 0.1 (0.0-0.1); BASOPHILS % 0.8 % (0.0-1.0); EOSINOPHILS # (AUTO) 0.1 (0.0-0.4); EOSINOPHILS % 1.7 % (0.0-6.0); HEMATOCRIT 30.4 % (34.2-44.1); HEMOGLOBIN 9.9 g/dL (12.0-16.0); LYMPHOCYTES # (AUTO) 1.2 (1.0-3.2); LYMPHOCYTES % 16.1 % (18.0-39.1); MEAN CORPUSCULAR HEMOGLOBIN 27.9 pg (28-32); MEAN CORPUSCULAR HGB CONC 32.6 g/dL (31-35); MEAN CORPUSCULAR VOLUME 85.6 fL (81-99); MONOCYTES # (AUTO) 0.6 (0.2-0.8); MONOCYTES % 7.7 % (4.4-11.3); NEUTROPHILS # (AUTO) 5.2 (2.1-6.9); NEUTROPHILS % 72.7 % (38.7-80.0); PLATELET COUNT 507 x10e3/uL (140-360); RED BLOOD COUNT 3.55 x10e6/uL (3.6-5.1); RED CELL DISTRIBUTION WIDTH 14.6 % (11.7-14.4)
[2019-04-18 06:56] LABS: ALBUMIN 2.3 g/dL (3.5-5.0); ALBUMIN/GLOBULIN RATIO 0.6 (0.8-2.0); ANION GAP 13.7 mmol/L (8-16); CALCIUM 9.9 mg/dL (8.4-10.2); CREATININE, SERUM 1.13 mg/dL (0.57-1.11); POTASSIUM 3.7 mmol/L (3.5-5.1)
--- NOTE | 2019-04-18 07:28 | NUR ---
PATIENT IN BED RESTING WITH NO S/S OF DISTRESS. SOME EDEMA NOTED TO LOWER EXTREMITIES, SUZI HOSE IN PLACE. BED IN LOWER POSITION, CALL LIGHT AT REACH.
[2019-04-18 07:30] VITALS: BP 156/87
[2019-04-18] MEDS: BISACODYL 5 MG TAB EC PO SCH ×3 (07:42→18:17)
[2019-04-18 07:51] LABS: AMYLASE 105 U/L (25-125); LIPASE 93 U/L (8-78)
[2019-04-18] MEDS: HYDROCODONE/APAP 10MG-325MG TAB PO PRN ×3 (09:10→20:00)
[2019-04-18] MEDS: CEFTRIAXONE SOD 1 GM/NS 50 ML 50 ML IV SCH ×2 (09:41→21:21)
[2019-04-18] MEDS: FUROSEMIDE 20 MG TAB PO SCH (09:41)
[2019-04-18] MEDS: FLUCONAZOLE 100 MG TAB PO SCH (09:41)
[2019-04-18] MEDS: PANTOPRAZOLE 40 MG 10ML VIAL IV SCH (09:41)
[2019-04-18] MEDS: ALLOPURINOL 100 MG TAB PO SCH (09:41)
[2019-04-18] MEDS: CYCLOBENZAPRINE HCL 10 MG TAB PO SCH ×3 (09:42→21:21)
--- NOTE | 2019-04-18 10:54 | NUR ---
Nutrition Intervention Note RD Recommendation(s) for Physician: -Continue GI soft diet per MD. -If po intake does not improved, consider parenteral nutrition- consult Nutrition for recommendations. Plan of Care: RD following, monitoring for tolerance and adequacy Nutrition reason for involvement: Follow up RD Assessment 04/18: Follow up: Pt was seen resting in bed. The pt has been advanced to a Gi soft diet. She reported her tolerance varies when it comes to different foods. She handled the grilled cheese well but then she felt some nausea resulting in her not eating for awhile. She then reports this hunger caused her to eat too much this morning which cause her then to feel nausea again. Pt denied any vomiting. Encouraged pt to take it slow and consume as tolerated. Pt still has not had a BM. Pt still did not want any ONS. Will continue to monitor. 04/16: Pt advanced to full liquid diet, she reports she is only able to tolerate a few bites of each item on her tray, diet lemon-grand traverse soda, and ice chips with the utilization of antiemetics. Pt reports continued N/V with 3 episodes of vomiting or dry heaving daily. Pt denies BM since 04/11. Pt states that she did not tolerate the Ensure Clear, does not want additional supplements. All questions and concerns addressed at time of visit. Pt discussed during am rounds. Chart reviewed. Will monitor and continue to follow. 04/11: 44 YOF admitted for acute renal failure, dehydration with PMH listed below. Pt was seen lying in bed with at bedside. Clear liquid tray was observed next to her, pt is on IVF. The pt reported that she can not keep anything down and she has had N/V since last Sunday. Pt reported she wanted to try the Ensure clear supplement, spoke to nurse about recommendation. No notes documented within EMR as of now, pt was admitted yesterday. Pt reported her weight has been stable recently and denied C/D/chewing or swallowing issues as well as any food allergies. Will continue to monitor diet advancement and tolerance. Principal Problems/Diagnoses: acute renal failure, dehydration PMH: no H&P in [facility] GI: Abd: soft; non tender. LBM: 04/13 Skin: no pressure ulcer reported Labs: 04/18: Creat 1.13, Mg 1.2, Alk phos 333, Creat kinase 16, lipase 83 04/16: Na 137, K 3.2, BUN 23, Cr 1.56, Gluc 103 IVF: --- Meds: abx, zofran, protonix, dilaudid, lasix, dulcolax Ht:67 in W170 lbs 04/18: 169 lbs BMI: 26.6 kg/m^2 IBW:148 lbs Malnutrition Evaluation (04/11) The patient does not meet criteria for a specified degree of malnutrition at this time. Will re-evaluate at follow-up as appropriate. Energy intake: <50% of estimated energy requirements for >5 days Nutrition Prescription (Diet Order): full liquids Estimated Nutritional Needs: Calories: 1386 kcal-1694 kcal (18-22) Weight used : CBW 77 kg Protein : 77-115 gram/protein/day (1-1.5) Weight used: CBW 77 kg Diet Adequacy: Not meeting calorie needs, Not meeting protein needs Diet Education Needs Assessment: Diet education not indicated, patient on temporary/transition diet. Nutrition Care Level: Mod- advanced to Gi soft diet Nutrition Diagnosis: Inadequate energy intake related to medical condition as evidenced by the pt being on clear liquids. Goal: Patient will meet 75-100% of estimated needs by follow up Progress: progressing Diet tolerance: tolerance varies Interventions: -fiber -modified diet, Commercial beverage, Monitoring/Evaluation: -Total energy intake, Total protein intake, Modified diet, Liquid supplement, Weight change Signed: Kelsey Sanchez RD,KELSI
[2019-04-18 11:07] VITALS: BP 146/83
--- NOTE | 2019-04-18 12:52 | NUR ---
DULCOLAX TREATMENT IN PROGRESS, NO BM NOTED. WILL CONTINUE TO MONITOR.
[2019-04-18] MEDS: DIPHENHYDRAMINE HCL 25 MG CAP PO PRN ×2 (13:13→19:59)
[2019-04-18] MEDS ORDERED: HYDROMORPHONE 2MG/ML 2 MG/ML ML IV ONE (14:30)
--- NOTE | 2019-04-18 15:19 | Consultation ---
DATE OF CONSULTATION: 04/12/[address] Livingston. HISTORY OF PRESENT ILLNESS: Elizabeth Dejesus is a 44-year-old white female, referred to me for evaluation of thrombocytopenia. The patient presented with swelling of the feet. SOCIAL HISTORY: Noncontributory. FAMILY HISTORY: Noncontributory. ALLERGIES: REPORTED PENICILLIN. MEDICATIONS: At the time when I saw the patient was on ceftriaxone, potassium chloride, ondansetron, hydromorphone, promethazine, Protonix, and Tylenol. REVIEW OF SYSTEMS: HEENT: Normal. CARDIAC: Normal. RESPIRATORY: Normal. GI: Normal. : At the present time, the patient is in renal failure. MUSCULOSKELETAL: Normal. SKIN: Normal. BREASTS: Normal. NEUROENDOCRINE: Normal. HEMATOLOGICAL: The patient referred to me for evaluation of thrombocytopenia. PHYSICAL EXAMINATION: GENERAL: A marked adult female. NECK: No adenopathy. HEART: Within normal limits. LUNGS: Clear. BREASTS: Deferred at request. ABDOMEN: Soft. RECTAL AND VAGINAL: Deferred at request. CENTRAL NERVOUS SYSTEM: Essentially normal. EXTREMITIES: 2+ pitting edema of the feet. LABORATORY DATA: Hemoglobin of 12.1, hematocrit of 36.2, white count of 14,300, and platelets of 69,000 on 04/10. On 04/11, the patient's platelets dropped down to 61,000. There is a marked shift to the left with white count. The patient's absolute neutrophil count is 11,900. Chemistry shows a sodium of 129, potassium 3.7, chloride is 98, CO2 15, BUN 76, creatinine 7.02, glucose 119, and magnesium high at 2.3. Bilirubin 1.1, SGOT 19, SGPT 49, and alkaline phosphatase very high at 338. Total protein is low at 6.4, albumin low at 2.1, and globulin is high at 4.3. Quantitation of immunoglobulins was done because of high globulins, however, all the immunoglobulins are low. IgG low at 606, IgA low at 190, and IgM low at 173. Weldon/lambda chain ratio is high at 3.04. The patient also had hepatitis C. This was reported negative. The patient's lupus panel has been ordered, however, not available at this time for review. IMAGING DATA: Imaging consisted of a CT of the abdomen and pelvis, which reported gallstones, 4.1 cm right ovarian cyst. D-dimers were done because of the swelling of the feet and was reported at 3950. Venous Doppler was done, which was reported negative. V/Q scan of the lung was reported negative with low probability. Ultrasound of the renal veins was done, which were reported also negative. Urinalysis showed multiple bacteria. Urine culture had grown E. coli. IMPRESSION: 1. Urinary tract infection. 2. Leukocytosis. 3. Improving thrombocytopenia, 69,000, 61,000, and 96,000. At the time of this dictation, the platelet count are normal. 4. Hyponatremia. 5. Hypokalemia. 6. Possible acute tubular necrosis. 7. Hypoalbuminemia. 8. Hypoproteinemia. 9. Hyperglobulinemia. 10. Hypocalcemia of 8. 11. Gallstones. 12. Diverticulosis coli by CAT scan. 13. Ascites, pelvic by CAT scan. 14. Right ovarian cyst. 15. High kappa/lambda chain ratio. 16. 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 17. Possible multiple myeloma, as the kappa/lambda chain ratio is higher than 1.65. PLAN, COMMENTS, AND SUGGESTIONS: Continue aggressive antibiotics. I have spoken to her and has been many times regarding the progress that I will confine myself to Hematology only. I suggested her a bone marrow aspirate and a biopsy as outpatient in my office next Sunday to rule out possibility of multiple myeloma since she is getting anemic now. Thank you for allowing me to participate in the management of this patient. MD RAHEL Navarro/IONA /[id number] cc: MD Dr. Brett [facility]
[2019-04-18 19:15] VITALS: BP 162/90
--- NOTE | 2019-04-18 19:15 | NUR ---
PT IS RESTING IN BED. RESPIRATION IS EVEN AND UNLABORED, NO DISTRESS NOTED. BED IN THE LOWEST POSITION, LOCKED, AND CALL LIGHT WITHIN REACH. WILL CONTINUE TO MONITOR.
[2019-04-18 20:40] VITALS: BP 162/90
--- NOTE | 2019-04-18 21:30 | NUR ---
PER DR JUINE ERWIN 10MG PO PRN CAN BE RENEW. WILL CONTINUE TO MONITOR.
[2019-04-18] MEDS: ZOLPIDEM TARTRATE 10 MG TAB PO PRN (21:44)
[2019-04-19] VITALS (7 sets, daily range): BP systolic 149–168; BP diastolic 81–90
[2019-04-19] MEDS: HYDROCODONE/APAP 10MG-325MG TAB PO PRN ×5 (02:47→22:19)
[2019-04-19] MEDS: ONDANSETRON HCL INJ 2MG/ML 2ML 2 MG/ML VIAL IV PRN ×2 (04:59→15:04)
[2019-04-19] MEDS ORDERED: SUMATRIPTAN SUCCINATE 6 MG/0.5 ML VIAL SC ONE (05:45)
[2019-04-19] MEDS ORDERED: MAGNESIUM SULFATE 2GM/50ML 50 ML IV ONE (05:45)
[2019-04-19] MEDS: BISACODYL 5 MG TAB EC PO SCH ×4 (06:00→17:04)
--- NOTE | 2019-04-19 07:00 | NUR ---
RCD PT AT BED PT IS ALERT AND ORIENTED PT RESTING ON BED IV PATENT BY SALINE FLUSH BED LOW AND LOCKED CALL LIGHT IN REACH
[2019-04-19] MEDS: FLUCONAZOLE 100 MG TAB PO SCH (09:00)
[2019-04-19] MEDS: CYCLOBENZAPRINE HCL 10 MG TAB PO SCH ×3 (09:00→20:23)
[2019-04-19] MEDS: ALLOPURINOL 100 MG TAB PO SCH (09:00)
[2019-04-19] MEDS: PANTOPRAZOLE 40 MG 10ML VIAL IV SCH (09:00)
[2019-04-19] MEDS: CEFTRIAXONE SOD 1 GM/NS 50 ML 50 ML IV SCH ×2 (09:00→20:22)
[2019-04-19] MEDS: FUROSEMIDE 20 MG TAB PO SCH (09:00)
[2019-04-19] MEDS: DIPHENHYDRAMINE HCL 25 MG CAP PO PRN (09:26)
--- NOTE | 2019-04-19 17:00 | NUR ---
pt requested to imitriex for headache notified dr up got the order
[2019-04-19] MEDS ORDERED: SUMATRIPTAN SUCCINATE 6 MG/0.5 ML VIAL SC NR (18:00)
--- NOTE | 2019-04-19 18:41 | NUR ---
PT RESTING ON BED BED SIDE REPORT GIVEN TO ONCOMING NURSE
--- NOTE | 2019-04-19 19:15 | NUR ---
patient received awake, alert, lying quietly in bed. no c/o pain noted at this time. pm assessment complete. patient instructed to call for assistance when needed.
[2019-04-19] MEDS: ZOLPIDEM TARTRATE 10 MG TAB PO PRN (22:19)
--- NOTE | 2019-04-19 22:19 | NUR ---
patient medicated for c/o lower abd/back pain 5/10 at this time per patients request.
[2019-04-20] VITALS (9 sets, daily range): BP systolic 150–167; BP diastolic 85–100
[2019-04-20] MEDS: HYDROCODONE/APAP 10MG-325MG TAB PO PRN ×4 (04:36→21:27)
--- NOTE | 2019-04-20 04:36 | NUR ---
patient medicated for c/o lower abd/back pain 12/09 per patients request at this time.
[2019-04-20] MEDS: BISACODYL 5 MG TAB EC PO SCH ×3 (05:08→12:00)
[2019-04-20] MEDS: PROMETHAZINE 25MG/ NS 50ML (IV) IV PRN (06:40)
--- NOTE | 2019-04-20 06:40 | NUR ---
patient medicated with phenergan 25mg iv for c/o nausea at this time.
--- NOTE | 2019-04-20 07:19 | NUR ---
PATIENT IN BED RESTING WITH NO S/S OF DISTRESS. BED IN LOWER POSITION, CALL LIGHT AT REACH.
[2019-04-20] MEDS ORDERED: SUMATRIPTAN SUCCINATE 6 MG/0.5 ML VIAL SC NR (09:30)
[2019-04-20] MEDS: PANTOPRAZOLE 40 MG 10ML VIAL IV SCH (09:54)
[2019-04-20] MEDS: FUROSEMIDE 20 MG TAB PO SCH (09:54)
[2019-04-20] MEDS: CEFTRIAXONE SOD 1 GM/NS 50 ML 50 ML IV SCH (09:54)
[2019-04-20] MEDS: CYCLOBENZAPRINE HCL 10 MG TAB PO SCH ×3 (09:54→22:10)
[2019-04-20] MEDS: ALLOPURINOL 100 MG TAB PO SCH (09:54)
[2019-04-20] MEDS: FLUCONAZOLE 100 MG TAB PO SCH (09:54)
--- NOTE | 2019-04-20 10:47 | NUR ---
PATIENT C/O HEADACHE, NOTIFIED. NEW ORDER RECEIVED AND IMPLEMENTED. PATIENT STATED THAT SHE IS FEELING BETTER. WILL CLOSELY MONITOR.
--- NOTE | 2019-04-20 11:00 | Progress Note ---
DATE: This is Dr. Chalo Valdez covering for Dr. Livingston. SUBJECTIVE: She is a 44-year-old female. The patient is here for acute renal failure, dehydration. The patient also has thrombocytopenia, vomiting and diarrhea. The patient is complaining of headache right now and is requesting for sumatriptan. She also has photophobia at this point of time. OBJECTIVE: VITAL SIGNS: Temperature is 98.3, pulse of 93, respirations of 19, blood pressure is 158/85, pulse oximetry of 92%. GENERAL: The patient is alert and oriented x3, in distress, some headache. HEENT: Normocephalic, atraumatic. CVS: S1 and S2 normal. Regular rate and rhythm. ABDOMEN: Tender in the epigastrium. LUNGS: Respiration is normal. MUSCULOSKELETAL SYSTEM: Within normal limits. SKIN: Normal. The patient's physical examination otherwise essentially normal. LABORATORY DATA: From the last time, hemoglobin of 9.9, hematocrit 30.4, platelet count is 507, neutrophil count 72.7. The patient's manual metamyelocytes and myelocytes are high. Slight anisocytosis and hypochromasia. MICROBIOLOGY: Urine culture shows Escherichia coli. Currently, the patient is on Rocephin, which is sensitive to Escherichia coli. ASSESSMENT: 1. Urinary tract infection. 2. Leukocytosis. 3. Thrombocytopenia. 4. Hyponatremia. 5. Possible acute tubular necrosis and immune deficiency noted. PLAN: Plan is to continue with IV antibiotics. Acute kidney injury is resolving. We will follow up with laboratory values. The last creatinine was 1.13 with a BUN of 12 with an EGFR of 52. Again, we will continue monitoring the patient's kidney functions. Lipase is elevated at 93. Continue to monitor the patient's lab work, tomorrow will be done again. Further recommendation per clinical course and continue followup with kidney and hematology. MD VELMA PérezJ/MODL /[id number]
[2019-04-20] MEDS: DIPHENHYDRAMINE HCL 25 MG CAP PO PRN ×2 (13:19→21:27)
--- NOTE | 2019-04-20 15:18 | NUR ---
PATIENT C/O ITCHING, PRN MEDICATION GIVEN ORDERED. IN BED RESTING WITH NO DISTRESS. NO MORE C/O ITCHING, WILL CLOSELY MONITOR.
[2019-04-20] MEDS: ONDANSETRON HCL INJ 2MG/ML 2ML 2 MG/ML VIAL IV PRN ×2 (15:35→21:27)
[2019-04-20] MEDS ORDERED: BISACODYL 5 MG TAB EC PO PRN (16:45)
[2019-04-20] MEDS: ZOLPIDEM TARTRATE 10 MG TAB PO PRN (22:09)
[2019-04-21] VITALS (8 sets, daily range): BP systolic 150–169; BP diastolic 86–94
[2019-04-21] MEDS: HYDROCODONE/APAP 10MG-325MG TAB PO PRN ×2 (03:35→21:40)
[2019-04-21] MEDS: ACETAMINOPHEN 325 MG TAB PO PRN (04:58)
[2019-04-21] MEDS: ONDANSETRON HCL INJ 2MG/ML 2ML 2 MG/ML VIAL IV PRN ×3 (04:58→21:54)
[2019-04-21 06:54] LABS: ANION GAP 15.7 mmol/L (8-16); CALCIUM 9.9 mg/dL (8.4-10.2); CREATININE, SERUM 1.25 mg/dL (0.57-1.11); POTASSIUM 3.7 mmol/L (3.5-5.1)
--- NOTE | 2019-04-21 07:05 | NUR ---
received bedside report from maintenance technician 2nd shift RN, pt awake, alert, oriented, no signs of distress noted, will continue to monitor.
[2019-04-21 07:07] LABS: BASOPHILS # (AUTO) 0.1 (0.0-0.1); BASOPHILS % 0.8 % (0.0-1.0); EOSINOPHILS # (AUTO) 0.1 (0.0-0.4); EOSINOPHILS % 1.8 % (0.0-6.0); HEMATOCRIT 29.3 % (34.2-44.1); HEMOGLOBIN 9.4 g/dL (12.0-16.0); LYMPHOCYTES % 16.7 % (18.0-39.1); MEAN CORPUSCULAR HEMOGLOBIN 28.3 pg (28-32); MEAN CORPUSCULAR HGB CONC 32.1 g/dL (31-35); MEAN CORPUSCULAR VOLUME 88.3 fL (81-99); MONOCYTES # (AUTO) 0.6 (0.2-0.8); MONOCYTES % 9.5 % (4.4-11.3); NEUTROPHILS # (AUTO) 4.4 (2.1-6.9); NEUTROPHILS % 70.9 % (38.7-80.0); PLATELET COUNT 583 x10e3/uL (140-360); RED BLOOD COUNT 3.32 x10e6/uL (3.6-5.1); RED CELL DISTRIBUTION WIDTH 14.3 % (11.7-14.4)
[2019-04-21] MEDS: CYCLOBENZAPRINE HCL 10 MG TAB PO SCH ×3 (08:55→20:43)
[2019-04-21] MEDS: FLUCONAZOLE 100 MG TAB PO SCH (08:55)
[2019-04-21] MEDS: ALLOPURINOL 100 MG TAB PO SCH (08:56)
[2019-04-21] MEDS: FUROSEMIDE 20 MG TAB PO SCH (08:56)
[2019-04-21] MEDS: PANTOPRAZOLE 40 MG 10ML VIAL IV SCH (09:06)
[2019-04-21] MEDS: DIPHENHYDRAMINE HCL 25 MG CAP PO PRN ×2 (09:07→20:43)
--- NOTE | 2019-04-21 09:20 | Diagnostic Imaging Report ---
EXAMINATION: BONE SURVEY COMP INDICATION: Renal failure COMPARISON: None FINDINGS: Total body bone survey demonstrates no acute fracture or dislocation. No suspicious radiographically apparent lytic lesions throughout the visualized axial and appendicular skeleton. Moderate multilevel degenerative changes of the lumbar spine with grade 1 retrolisthesis at L1-2 through L4-5. S-shaped curvature of the thoracic spine. Reversal of normal cervical lordosis. IMPRESSION: No suspicious radiographically apparent lytic lesions. Signed by: Jorge Snider MD on 04/21/2019 9:17 AM
[2019-04-21] MEDS ORDERED: LORAZEPAM INJ 2 MG/ML VIAL IV ONE ×2 (10:30)
--- NOTE | 2019-04-21 13:43 | Diagnostic Imaging Report ---
History: , Headache Comparison studies: None Technique: Sagittal and axial T2 FS, axial DWI, axial T2*GRE, axial T1 FLAIR and axial coronal T2 FLAIR. Intravenous contrast: None Findings: Several pulse sequences are limited artifacts related to patient motion. In spite of limitations: Scalp: Normal in signal. No masses. Bone marrow: Normal in signal intensity. Brain sulci: Appropriate for age. Ventricles: Normal in size. No hydrocephalus. Extra axial spaces: No mass, no fluid collection. Parenchyma: Subtle T2 FLAIR hyperintense signal changes in the periventricular white matter are nonspecific but may be chronic microvascular ischemic changes. No mass, hemorrhage, acute ischemia or chronic cortical insults. Suprasellar region: No abnormalities. Craniocervical junction: Patent foramen magnum. No Chiari malformation. Vessels: Normal flow-voids in the arteries and sinuses. Incidental findings: Small fluid level in the left sphenoid sinus. IMPRESSION: Exam somewhat limited by motion artifacts. In spite of limitations: 1. Mild supratentorial chronic microvascular ischemic changes. 2. Small left sphenoid sinus fluid level indicative of sinusitis. Signed by: Dr. Paolo Mckeon M.D. on 04/21/2019 1:40 PM
--- NOTE | 2019-04-21 16:25 | Diagnostic Imaging Report ---
Exams: Thoracic and lumbar spine MRIs without IV contrast History: Back pain Comparison studies: Included spine from abdomen pelvis CT of 04/10/2019. Technique: Thoracic spine: Sagittal T1 FLAIR, sagittal, axial coronal T2 and sagittal STIR. Lumbar spine: Sagittal, axial coronal T2, axial oblique proton density, sagittal T1 FLAIR sagittal STIR and axial T2 FS. IV contrast: None. Findings: Several pulse sequences are limited artifacts related to patient motion. In spite of limitations: Number of lumbar vertebral bodies:5. Alignment: Mild S-shaped thoracal lumbar curvature with lumbar dextrocurvature with apex at L2-L3 with mild compensatory thoracic levocurvature. Normal thoracic kyphosis. Hyperlordotic curvature with Minimal Grade 1 degenerative retrolisthesis of L1 on L2 and L2 on L3 and minimal Grade 1 L5 isthmic spondylolisthesis due to chronic L5 pars defects. Lower thoracic cord: Normal in signal and morphology. The tip of the conus is at L2. . Soft tissues: No T2 hyperintense inflammatory changes. Incidental cholelithiasis with small T2 hypointense gallbladder stones. Paraspinal muscles: Well preserved. Vertebrae: Normal in height and signal intensity. No compression fractures, infection or neoplasm. Chronic bilateral L5 pars defects. Degenerative changes: Thoracic spine: Mild multilevel disc degeneration. No significant canal or foraminal stenosis. Lumbar spine: T12-L1: Moderately degenerated disc. L1-L2: Mildly degenerated disc. Minimal retrolisthesis of L2 on L3 with associated uncovered disc/disc bulge without significant canal or foraminal stenosis. L2-L3: Severely degenerated disc with loss of disc height and vacuum phenomenon. Advanced sclerotic degenerative endplate changes are present. No marrow edema. Minimal retrolisthesis of L2 on L3 with associated uncovered disc/disc osteophyte complex and facet arthrosis with mild left foraminal stenosis. No significant canal or right foraminal stenosis. L3-L4: Mildly degenerated disc. Small disc bulge does not result in significant canal or foraminal stenosis. L4-L5: Mildly degenerated disc. Patent canal and foramina. L5-S1: Grade 1 L5 isthmic spondylolisthesis with uncovered disc/disc bulge which result in moderate bilateral foraminal stenosis. No canal stenosis. IMPRESSION: Exam is limited by motion artifacts. In spite of limitations: Thoracic spine: 1. Mild multilevel disc degeneration. 2. No significant canal or foraminal stenosis. Lumbar spine: 1. Severely degenerated L2-L3 disc. 2. No significant canal stenosis. 3. Mild foraminal stenosis on the right at L2-L3. 4. Grade 1 L5 isthmic spondylolisthesis with moderate bilateral foraminal stenosis at L5-S1. Signed by: Dr. Paolo Mckeon M.D. on 04/21/2019 4:21 PM
--- NOTE | 2019-04-21 16:35 | Diagnostic Imaging Report ---
History: Pain Comparison studies: None Technique: Sagittal T1, T2 and IR, axial T2 and axial gradient echo Intravenous contrast: None Findings: Exam is limited by artifacts related to patient motion. In spite of artifacts: Alignment: Kyphotic cervical curvature centered at C4-C5. Minimal degenerative anterolisthesis of C3 on C4 and minimal degenerative retrolisthesis of C4 on C5 and C5 on C6. Cervicomedullary junction: No abnormalities. Patent foramen magnum. Soft tissues: No T2 hyperintense inflammatory changes. Spinal cord: Normal in size and grossly normal in signal from the foramen magnum through T1. Evaluation of the cord is limited by motion artifacts. Vertebrae: No fractures, infection or neoplasm. Degenerative changes: C2-C3: Mildly degenerated disc. Moderate right foraminal stenosis due to uncovertebral and facet arthrosis. No significant canal or left foraminal stenosis. C3-C4: Moderately degenerated disc. Minimal anterolisthesis of C3 on C4 with associated uncovered disc/disc osteophyte complex, uncovertebral arthrosis and facet arthrosis with moderate canal stenosis and severe right and mild left foraminal stenosis. Small right facet effusion. C4-C5: Moderately degenerated disc. Minimal retrolisthesis of C4 on C5 with associated disc osteophyte complex, uncovertebral arthrosis with severe canal stenosis and severe left and likely moderate right foraminal stenosis. C5-C6: Moderately degenerated disc. Disc osteophyte complex asymmetric to the left and uncovertebral arthrosis with severe left and mild right femoral stenosis and mild canal stenosis. C6-C7: Moderately degenerated disc. Disc osteophyte complex and uncovertebral arthrosis with mild canal stenosis and mild left frontal stenosis. No significant right foraminal stenosis. C7-T1: Bilateral facet arthrosis. Patent canal and foramina. Incidental findings: Small fluid level/secretions in the left sphenoid sinus. IMPRESSION: Exam limited by motion artifacts. In spite of limitations: 1. Moderately degenerated disks from C3 to C7. 2. Degenerative canal stenosis from C3 to C7; moderate at C3-C4 and severe at C4-C5. No gross associated cord signal abnormalities. 3. Multilevel foraminal stenosis due to uncovertebral arthrosis and multilevel facet arthrosis; moderate right at C2-C3, severe right at C3-C4, severe left and moderate right at C4-C5 and moderate left at C5-C6. Signed by: Dr. Paolo Mckeon M.D. on 04/21/2019 4:31 PM
--- NOTE | 2019-04-21 19:10 | NUR ---
Received patient awake on bed, not in distress, call light within easy reach, advised to call anytime when needed. Will continue to monitor
[2019-04-21] MEDS ORDERED: NORTRIPTYLINE HCL 10 MG CAP PO SCH (21:00)
[2019-04-21] MEDS ORDERED: NORTRIPTYLINE HCL 25 MG CAP PO SCH (21:00)
[2019-04-21] MEDS: ZOLPIDEM TARTRATE 10 MG TAB PO PRN (21:39)
[2019-04-22] VITALS: BP 144/83
--- NOTE | 2019-04-22 02:12 | Consultation ---
DATE OF CONSULTATION: 04/21/2019 Neurology Consult Note HISTORY OF PRESENT ILLNESS: Ms. Dejesus is a 44-year-old right-hand dominant woman with past medical history significant for migraines and chronic neck and low back pain, admitted to [facility] as an inpatient on April 10, 2019, with acute kidney injury secondary to dehydration, infection, and NSAID use. Throughout her hospitalization, the patient's acute kidney injury has gradually improved. Ms. Dejesus is undergoing evaluation by Hematology/Oncology for thrombocytopenia as well. A Neurology consultation is requested for further evaluation and treatment of the patient's headaches. Ms. Dejesus reports headaches which she described as follows: The pain may be located either at the temples, behind the eyes, or over the occiput. Wherever, the pain starts, it does not radiate. The pain is described as throbbing and is rated as 6/10 to 7/10. Associated with the headaches are photophobia, phonophobia, nausea with or without vomiting, dizziness which is further described as combination of lightheadedness and vertigo, and blurred vision. Ms. Dejesus does not report an aura preceding her headaches. The patient experiences a headache 2 or 3 times per week, possibly more. When present, the headaches will persist for hours. Triggers include psychosocial stress and lack of sleep. Ms. Dejesus reports her headaches improve with oral medications (ibuprofen, Imitrex, and/or tizanidine) and lying down in a dark quiet room and resting for a few hours. To her knowledge, the patient has never taken a prophylactic medication for treatment of her headaches. The patient's most recent headache occurred yesterday, 04/20/2019. The headache resolved after single dose of sumatriptan. REVIEW OF SYSTEMS: At present, the only symptoms, Ms. Dejesus endorses are chronic neck and low back pain. Otherwise, a 12-point review of systems is negative. PAST MEDICAL HISTORY: Migraines, chronic neck and low back pain. PAST SURGICAL HISTORY: sections, bilateral tubal ligation, surgery for broken jaw, and appendectomy. PAST HOSPITALIZATIONS: Surgeries/procedures as listed. FAMILY MEDICAL HISTORY: Ms. Dejesus reports either breast or ovarian cancer in multiple maternal relatives. SOCIAL HISTORY: Ms. Dejesus is . 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 The patient does not report current or prior tobacco or recreational drug use. The patient does report occasional alcohol use. HOME MEDICATIONS: Ibuprofen 800 mg by mouth 3 times daily, Macrobid 100 mg, promethazine 25 mg by mouth daily as needed for nausea, tizanidine 4 mg by mouth every 8 hours, and zolpidem ER 12.5 mg by mouth at bedtime as needed for insomnia. HOSPITAL MEDICATIONS: Tylenol, allopurinol, cyclobenzaprine, diphenhydramine, fluconazole, [place], metoprolol, Zofran, Protonix, phenol, sumatriptan, and zolpidem. ALLERGIES: PENICILLIN. NO KNOWN FOOD ALLERGIES. NO KNOWN ALLERGIES TO LATEX. NO KNOWN ALLERGIES TO IODINE OR OTHER CONTRAST MATERIALS. PHYSICAL EXAMINATION: VITAL SIGNS: Height 67 inches, weight 169 pounds, BMI 26.5 kg/m2, blood pressure 169/93 mmHg, pulse 112 beats per minute, respiratory rate 17 breaths per minute, and oxygen saturation 97% on room air. GENERAL: The patient is awake and alert, does not appear distressed. Overweight. HEENT: Normocephalic and atraumatic. Pupils are equal, round, and reactive to light. Moist mucous membranes. NECK: Supple. No appreciable thyromegaly. No appreciable carotid bruits. CARDIOVASCULAR: S1 and S2, tachycardic, regular rhythm. No murmurs, rubs, or gallops. RESPIRATORY: Clear to auscultation bilaterally. No wheezes, rhonchi, or rales. EXTREMITIES: The skin is warm and dry. No clubbing, cyanosis, or edema. The posterior tibial and dorsalis pedis pulses are 2+ and symmetric. SKIN: No rashes or lesions. NEUROLOGIC: Memory/Attention: The patient is awake and alert, oriented to person, place, time, and situation. Cranial Nerves: Cranial nerve I - not tested. Cranial nerve II, III, IV, and - pupils are equal and round, react briskly to light (from 4 mm to 2 mm). Extraocular movements intact. No nystagmus. Cranial nerve V - sensation to light touch and pinprick is intact in the bilateral V1 through V3 distributions. Strength in the temporalis and masseter muscles is within normal limits. Cranial nerve VII - the face is symmetric as are all facial movements. Strength is within normal limits. Cranial nerve VIII - hearing is intact to finger rub bilaterally. Cranial nerve IX, X - the soft palate elevates equally and symmetrically. Cranial nerve XI - normal strength of the bilateral sternocleidomastoid and trapezius muscles. Cranial nerve XII - the tongue protrudes midline and moves symmetrically from [id number]. Strength: Bulk is normal. Strength is 5/5 in the bilateral deltoids, triceps, biceps, brachioradialis, wrist flexors and extensors, finger flexors and extensors, intrinsic hand muscles, hip flexors, knee flexors and extensors, ankle dorsiflexion and plantar flexion, and intrinsic foot muscles. Tone is normal. DTRs: Deep tendon reflexes are 2+ and symmetric at the triceps, biceps, brachioradialis, patellas, and Achilles. Plantar responses are flexor bilaterally. Sensation: Sensation is intact to light touch and pinprick in both arms and both legs. Cerebellar: Mszqgo-ywyo-asaztz and heel-bravo movements are intact without dysmetria or other impairment. Gait: Deferred. Speech: Spontaneous speech is normal without appreciable dysarthria or aphasia. Repetition is intact. Involuntary movements: None. Pronator Drift: None. LABORATORY DATA: The most recent basic metabolic panel is significant for a chloride of 93, carbon dioxide of 32, creatinine of 1.25 and estimated GFR 46. Liver function panel collected on April 18, 2019, was significant for an elevated alkaline phosphatase of 333, total protein of 6.0, albumin of 2.3, and globulin of 3.7. Amylase and lipase collected on April 18, 2019 were 105 and 93 respectively. Most recent CBC with differential and platelets revealed a white blood cell count of 6.22 with 70.9% neutrophils, 16.7% lymphocytes, 9.5% monocytes, 1.8% eosinophils, and 0.8% basophils. The hemoglobin and hematocrit are 9.4 and 29.3, respectively. The platelet count is 583. A quantitative D-dimer drawn on April 16, 2019, was 2.99. A urinalysis collected on April 15, 2019, revealed slightly cloudy urine with a specific gravity of 1.005, trace blood, 6 to 10 white blood cells, and few bacteria. A urine culture collected on April 10, 2019, grew Escherichia coli. A throat culture collected on April 10, 2019, revealed usual upper respiratory nya. Blood cultures collected on April 10, 2019, revealed no growth after 5 days. DIAGNOSTIC STUDIES: Electrocardiogram, 04/10/2019: Normal sinus rhythm at 91 beats per minute. Possible left atrial enlargement. MRI of the cervical spine without contrast, 04/21/2019: Multilevel degenerative disk disease from C3-C7, moderate at C3-C4 and severe at C4-C5. Multilevel foraminal stenoses are noted as well: Moderate right at C2-C3, severe right at C3-C4, severe left and moderate right at C4-C5, and moderate left at C5-C6. MRI of thoracic spine without contrast, 04/21/2019: Mild multilevel degenerative disk disease. No significant canal or foraminal stenosis. MRI of the lumbar spine, 04/21/2019: Multilevel degenerative disk disease, with severely degenerated disk disease at L2-L3. No significant canal or foraminal stenosis. MRI of the brain without contrast, 04/21/2019: On my review, there is no evidence of recent or remote large territorial ischemia, hemorrhage, mass, or mass effect. Cerebral volumes are appropriate for age. There is subtle T2/FLAIR hyperintense foci in the periventricular white matter suspicious for mild chronic small-vessel ischemic disease. ASSESSMENT AND PLAN: Ms. Dejesus is a 44-year-old right-hand dominant woman admitted to [facility] as an inpatient on April 10, 2019, with acute kidney injury secondary to dehydration, infection, and NSAID use. Throughout her hospital course, the patient's renal function has gradually improved. Ms. Dejesus is undergoing an evaluation for thrombocytopenia at present. Neurology consultation is requested for further evaluation and treatment of the patient's underlying headache disorder. Ms. Dejesus's neurological examination is nonfocal. Her laboratory data and other diagnostic studies have been reviewed and are documented above. Ms. Dejesus has intractable migraine without aura without status migrainosus. RECOMMENDATIONS: Are as follows: 1. Nortriptyline 25 mg by mouth at bedtime daily for migraine prophylaxis will be prescribed. Due to the frequency of her headaches, Ms. Dejesus is more likely to have a better response to prophylactic treatment rather than as needed treatment for her headaches. 2. The patient may continue to take ibuprofen 800 mg by mouth or sumatriptan by mouth as needed for severe headaches. However, Ms. Dejesus was advised to limit her use of oral analgesic medications to prevent analgesic overuse headache. 3. The patient may follow up as an outpatient in 4 weeks to assess her response to nortriptyline. 4. Defer treatment of the remaining medical comorbidities to the primary and other services following the patient. 5. Disposition is as per the primary and other services following the patient. Thank you for this consultation. There are no other recommendations from the Neurology Service at this time. Please call again with any questions or concerns. TIME SPENT: 70 minutes. Delaney Decker MD CP/IONA /[id number] [email or web address]
[2019-04-22 04:00] VITALS: BP 138/85
[2019-04-22] MEDS: DIPHENHYDRAMINE HCL 25 MG CAP PO PRN (05:07)
[2019-04-22] MEDS: ONDANSETRON HCL INJ 2MG/ML 2ML 2 MG/ML VIAL IV PRN (05:07)
[2019-04-22] MEDS: HYDROCODONE/APAP 10MG-325MG TAB PO PRN (05:08)
--- NOTE | 2019-04-22 07:30 | NUR ---
RECD PT IN BED SLEEPING,NO S/S DISCOMFORT
[2019-04-22 07:34] VITALS: BP 151/85
[2019-04-22] MEDS ORDERED: NORTRIPTYLINE H25 MG PO (07:35)
[2019-04-22] MEDS ORDERED: ULTRAM 50MG50 MG PO (07:36)
[2019-04-22 07:43] VITALS: BP 151/85
[2019-04-22] MEDS: ALLOPURINOL 100 MG TAB PO SCH (07:50)
[2019-04-22] MEDS: CYCLOBENZAPRINE HCL 10 MG TAB PO SCH (07:52)
[2019-04-22] MEDS: FLUCONAZOLE 100 MG TAB PO SCH (07:52)
[2019-04-22] MEDS: PANTOPRAZOLE 40 MG 10ML VIAL IV SCH (07:52)
--- NOTE | 2019-04-22 07:58 | NUR ---
C/O PAIN LEVEL 5 MEDICATED
[2019-04-22] MEDS: ACETAMINOPHEN 325 MG TAB PO PRN (07:59)
[2019-04-22] MEDS ORDERED: METOPROLOL TARTRATE 25 MG TAB PO SCH (09:00)
--- NOTE | 2019-04-22 10:00 | NUR ---
PT DISCHARGED HOME ,IV DCD WITHOUT REDNESS OR SWELLING,PRESCRIPTIONS AND INSTRUCTIONS GIVEN COPY ON CHART.TRANSPORTED TO AUTO VIA W/C
== END 2019-04-22 09:48 | disposition home or self-care (01) | DRG 871 ==
LOC: ER 18:55 → ERHOLD 21:34 → MED/SURG3 22:17
PROVIDERS: ADMIT Internal Medicine; ATTEND Internal Medicine
DX: A41.9 Sepsis, unspecified organism (principal); N17.0 Acute kidney failure with tubular necrosis; E87.1 Hypo-osmolality and hyponatremia; E87.2 Acidosis; N39.0 Urinary tract infection, site not specified; D83.9 Common variable immunodeficiency, unspecified; D69.6 Thrombocytopenia, unspecified; B96.20 Unspecified Escherichia coli [E. coli] as the cause of diseases classified elsewhere; E86.0 Dehydration; T39.395A Adverse effect of other nonsteroidal anti-inflammatory drugs [NSAID], initial encounter; N14.0 Analgesic nephropathy; R11.2 Nausea with vomiting, unspecified; R19.7 Diarrhea, unspecified; E87.6 Hypokalemia; D64.9 Anemia, unspecified; G43.019 Migraine without aura, intractable, without status migrainosus; K21.9 Gastro-esophageal reflux disease without esophagitis; M48.02 Spinal stenosis, cervical region; K57.30 Diverticulosis of large intestine without perforation or abscess without bleeding; K80.80 Other cholelithiasis without obstruction; N83.201 Unspecified ovarian cyst, right side; E88.09 Other disorders of plasma-protein metabolism, not elsewhere classified; E77.8 Other disorders of glycoprotein metabolism; K12.30 Oral mucositis (ulcerative), unspecified
CPT/HCPCS: 36415; 70551; 71046; 72141; 72146; 72148; 74176; 76770; 77075; 78582; 80048; 80053; 81001; 81015; 82150; 82550; 82553; 82570; 82784; 83516; 83518; 83615; 83690; 83735; 84100; 84156; 84165; 84166; 84484; 84550; 85007; 85025; 85027; 85379; 85610; 85730; 86160; 86225; 86235; 86255; 86256; 86376; 87040; 87070; 87086; 87186; 87522; 93005; 93970; 93971; 93976; 99284; A9540; A9558; J0696; J1170; J1885; J1940; J2060; J2270; J2405; J2550; J3030; J3475; J3480; J7030

== ENCOUNTER 2019-04-28 16:32 | Emergency (ER) | payer OTHER ==
[~2019-04-28] VITALS: Ht 170.2 cm; Wt 76.7 kg
[~2019-04-28 16:32] MED LIST: IBUPROFEN400 MG PO; NITROFURANTOIN100 MG PO; NORTRIPTYLINE H25 MG PO; PROMETHAZINE HC25 M1 PO; TIZANIDINE HCL4 MG PO; ULTRAM 50MG50 MG PO; ZOLPIDEM TART12.5 MG PO
[2019-04-28 18:25] LABS: BASOPHILS # (AUTO) 0.1 (0.0-0.1); BASOPHILS % 1.3 % (0.0-1.0); EOSINOPHILS # (AUTO) 0.1 (0.0-0.4); EOSINOPHILS % 1.6 % (0.0-6.0); HEMATOCRIT 36.4 % (34.2-44.1); HEMOGLOBIN 11.5 g/dL (12.0-16.0); LYMPHOCYTES # (AUTO) 1.8 (1.0-3.2); LYMPHOCYTES % 31.9 % (18.0-39.1); MEAN CORPUSCULAR HEMOGLOBIN 27.3 pg (28-32); MEAN CORPUSCULAR HGB CONC 31.6 g/dL (31-35); MEAN CORPUSCULAR VOLUME 86.5 fL (81-99); MONOCYTES # (AUTO) 0.5 (0.2-0.8); MONOCYTES % 9.6 % (4.4-11.3); NEUTROPHILS # (AUTO) 3.1 (2.1-6.9); NEUTROPHILS % 55.4 % (38.7-80.0); PLATELET COUNT 379 x10e3/uL (140-360); RED BLOOD COUNT 4.21 x10e6/uL (3.6-5.1); RED CELL DISTRIBUTION WIDTH 13.4 % (11.7-14.4)
[2019-04-28 18:28] LABS: BILIRUBIN,URINE NEGATIVE (NEGATIVE); CLARITY,URINE SL CLOUDY (CLEAR); COLOR,URINE YELLOW (YELLOW); KETONES,URINE NEGATIVE (NEGATIVE); LEUKOCYTE ESTERASE ,URINE NEGATIVE (NEGATIVE); NITRITE,URINE NEGATIVE (NEGATIVE); PROTEIN,URINE DIPSTICK NEGATIVE (NEGATIVE); URINE UROBILINOGEN 0.2 mg/dL (0.2 - 1)
--- NOTE | 2019-04-28 18:33 | Diagnostic Imaging Report ---
EXAMINATION: Head CT HISTORY: Nausea, dizziness, vomiting COMPARISON: Brain MRI 04/21/2019 TECHNIQUE: Multidetector axial images were obtained without contrast from the foramen magnum to the vertex . The images were reconstructed using brain and bone algorithms. Thin section brain images were reformatted into coronal and sagittal planes. Image quality: Motion/streaking artifact limits the evaluation of the skull base and posterior cranial fossa. Dose modulation, iterative reconstruction, and/or weight based adjustment of the mA/kV was utilized to reduce the radiation dose to as low as reasonably achievable. FINDINGS: Parenchyma: 1. Minimal white matter chronic microvascular ischemic changes better visualized on prior MRI. Otherwise unremarkable. 2. No mass or hemorrhage. No CT evidence of acute territorial vascular insult. Extra-axial spaces:No abnormal density. No extra-axial fluid collections Brain volume: Normal for age. Ventricles: No hydrocephalus or displacement. Arteries: No density suggestive of thrombus. Dural sinuses: No abnormal density. Extra-axial spaces: No abnormal density. Foramen magnum: No mass, Chiari malformation, or basilar invagination. Sella: No obvious mass. Paranasal/mastoid sinuses: Persistent small air-fluid level in the left sphenoid sinus, which may indicate sinusitis versus secretions. Skull/Scalp: No lytic or blastic lesions. No fractures. IMPRESSION: No acute intracranial abnormalities. Persistent partial opacification of the left sphenoid sinus. Signed by: Dr. Amanda Haywood M.D. on 04/28/2019 6:30 PM
[2019-04-28 18:41] LABS: ALANINE AMINOTRANSFERASE 22 IU/L (0-55); ALBUMIN 3.4 g/dL (3.5-5.0); ALBUMIN/GLOBULIN RATIO 0.8 (0.8-2.0); ALKALINE PHOSPHATASE 285 IU/L (40-150); ANION GAP 15.2 mmol/L (8-16); BLOOD UREA NITROGEN 18 mg/dL (7-26); BUN/CREATININE RATIO 15 (6-25); CARBON DIOXIDE 23 mmol/L (22-29); CHLORIDE 100 mmol/L (98-107); CREATINE KINASE 19 IU/L (29-168); CREATININE, SERUM 1.19 mg/dL (0.57-1.11); EST GLOMERULAR FILTRATION RATE 49 ML/MIN (60-); GLUCOSE 93 mg/dL (74-118); POTASSIUM 4.2 mmol/L (3.5-5.1); SODIUM 134 mmol/L (136-145)
[2019-04-28 18:46] LABS: BACTERIA,URINE FEW /HPF; EPITHELIAL CELLS,URINE MODERATE /LPF; RBC,URINE 0-5 /HPF (0-5)
--- NOTE | 2019-04-28 18:46 | Diagnostic Imaging Report ---
Frontal and lateral views of the chest. HISTORY: Nausea, dizzy, vomiting COMPARISON: Chest radiographs April 10, 2019. DISCUSSION: Lungs: The lungs are well inflated. No evidence of a consolidative pneumonia or pulmonary alveolar edema. Pleura: No pleural effusion or pneumothorax. Heart and mediastinum: The cardiomediastinal silhouette appear(s) unremarkable. Bones and soft tissues: Minimal to mild multilevel degenerative disc changes. IMPRESSION: 1. No acute radiographic abnormality. 2. No significant interval change. Signed by: Dr. Chato Gonzalez D.O., M.M.M. on 04/28/2019 6:42 PM
[2019-04-28] MEDS ORDERED: MECLIZINE HCL 12.5 MG TAB ONE (22:04)
[2019-04-28] MEDS ORDERED: MECLIZINE HCL 12.5 MG TAB PO ONE (22:15)
== END 2019-04-28 23:09 | disposition home or self-care (01) ==
LOC: ER 16:32
DX: H81.11 Benign paroxysmal vertigo, right ear (principal); R51 Headache
CPT/HCPCS: 36415; 70450; 71046; 80053; 81001; 82550; 82553; 84484; 84702; 85025; 99284; J8597

== ENCOUNTER 2019-05-26 15:28 | Observation (INO) | payer OTHER ==
[~2019-05-26] VITALS: Ht 170.2 cm; Wt 73.5 kg
[2019-05-26] MEDS ORDERED: KETOROLAC TROMETHAMINE 30 MG/ML VIAL IV ONE (16:08)
[2019-05-26] MEDS ORDERED: ONDANSETRON HCL INJ 2MG/ML 2ML 2 MG/ML VIAL IV ONE (16:08)
[2019-05-26] MEDS ORDERED: HYDROMORPHONE 2MG/ML 2 MG/ML ML IV ONE (16:14)
[2019-05-26] MEDS ORDERED: MORPHINE SULFATE 2 MG/ML SYR 1ML IV STA (16:21)
[2019-05-26] MEDS ORDERED: MORPHINE SULFATE INJ 4 MG/ML INJ 1ML IV ONE (16:30)
--- NOTE | 2019-05-26 16:30 | NUR ---
US AT BEDSIDE
[2019-05-26] MEDS ORDERED: SODIUM CHLORIDE 0.9% 1000ML 1,000 ML ONE (16:45)
[2019-05-26] MEDS ORDERED: ONDANSETRON HCL INJ 2MG/ML 2ML 2 MG/ML VIAL ONE (16:45)
[2019-05-26] MEDS ORDERED: MORPHINE SULFATE INJ 4 MG/ML INJ 1ML ONE (16:45)
[2019-05-26] MEDS: SODIUM CHLORIDE 0.9% 1000ML 1,000 ML IV SCH ×2 (17:07→23:51)
[2019-05-26] MEDS ORDERED: LORAZEPAM INJ 2 MG/ML VIAL IV ONE (17:25)
--- NOTE | 2019-05-26 17:29 | Diagnostic Imaging Report ---
EXAM: Right upper quadrant abdominal ultrasound INDICATION: Right upper quadrant pain COMPARISON: None. TECHNIQUE: Transverse and longitudinal images of the right upper quadrant abdomen were obtained FINDINGS: Liver: Size: 15.2 cm in the right midclavicular line, normal Appearance: Normal echogenicity, smooth contour Mass: No focal masses Gallbladder: Radiopaque shadowing gallstone. No gallbladder distention, wall thickening, or pericholecystic fluid. Negative reported sonographic Monroy's sign. Gallbladder wall measures 3 mm. Bile Ducts: Intrahepatic Ducts: No dilatation Extrahepatic Ducts: Common bile duct measures 4 mm Pancreas: Visualized portions of the pancreatic head, neck and proximal body are normal. Kidney: The right kidney measures 9.3 cm without evidence of hydronephrosis or stone. Vessels: Aorta: Visualized portions are normal Inferior Vena Cava: Visualized portions are normal Main Portal Vein: 0.8 cm, normal size with hepatopetal flow. Free Fluid: No ascites or pleural effusion IMPRESSION: Cholelithiasis without sonographic evidence of cholecystitis. Signed by: Jorge Snider MD on 05/26/2019 5:26 PM
[2019-05-26] MEDS ORDERED: LEVOFLOXACIN 500MG/D5W 100ML 100 ML IV ONE ×2 (18:00→22:30)
[2019-05-26] MEDS ORDERED: LORAZEPAM INJ 2 MG/ML VIAL ONE (18:08)
--- NOTE | 2019-05-26 18:54 | NUR ---
REPORT TO GEORGES CUMMINGS ALL QUESTIONS ANSWERED
[2019-05-26] MEDS: METRONIDAZOLE 500MG/NS 100ML 100 ML IV SCH (19:48)
[2019-05-26] MEDS ORDERED: METRONIDAZOLE 500MG/NS 100ML 100 ML IV ONE (19:50)
--- NOTE | 2019-05-26 20:12 | NUR ---
[facility] NOTIFIED OF TRANSFER 30-45 MINUTE ETA
[2019-05-26 21:27] VITALS: BP 152/96
--- NOTE | 2019-05-26 21:30 | NUR ---
patient arrived from [facility] via stretcher. She is awake, alert and able to make needs known. Patient appears in no apparent distress, vital signs are stable, but does c/o right flank pain. POC discussed. Patient verbalized understanding. She was also oriented to new room and call bañuelos.
[2019-05-26 21:41] LABS: BILIRUBIN,URINE NEGATIVE (NEGATIVE); CLARITY,URINE SL CLOUDY (CLEAR); COLOR,URINE YELLOW (YELLOW); KETONES,URINE NEGATIVE (NEGATIVE); LEUKOCYTE ESTERASE ,URINE SMALL (NEGATIVE); NITRITE,URINE NEGATIVE (NEGATIVE); PROTEIN,URINE DIPSTICK NEGATIVE (NEGATIVE); URINE UROBILINOGEN 0.2 mg/dL (0.2 - 1)
[2019-05-26 21:52] VITALS: BP 155/97
[2019-05-26 21:53] LABS: BACTERIA,URINE MODERATE /HPF; EPITHELIAL CELLS,URINE FEW /LPF; RBC,URINE 0-5 /HPF (0-5)
[2019-05-26] MEDS: D5.45%NS/KCL 20MEQ 1,000 ML IV SCH ×2 (22:10→23:51)
[2019-05-26] MEDS: ONDANSETRON HCL INJ 2MG/ML 2ML 2 MG/ML VIAL IV PRN (22:11)
[2019-05-26] MEDS: HYDROMORPHONE 1MG/1ML INJ IV PRN (22:11)
[2019-05-26] MEDS: ZOLPIDEM TARTRATE 10 MG TAB PO PRN (22:39)
[2019-05-26 23:00] VITALS: BP 155/97
[2019-05-26] MEDS: DIPHENHYDRAMINE HCL 25 MG CAP PO PRN (23:00)
[2019-05-27] VITALS (8 sets, daily range): BP systolic 139–158; BP diastolic 84–95
[2019-05-27] MEDS: HYDROMORPHONE 1MG/1ML INJ IV PRN ×4 (02:08→21:55)
[2019-05-27] MEDS: ONDANSETRON HCL INJ 2MG/ML 2ML 2 MG/ML VIAL IV PRN (02:08)
[2019-05-27] MEDS: METRONIDAZOLE 500MG/NS 100ML 100 ML IV SCH ×3 (03:58→19:50)
[2019-05-27] MEDS: DIPHENHYDRAMINE HCL 25 MG CAP PO PRN ×4 (03:58→23:31)
[2019-05-27 05:14] LABS: BASOPHILS % 0.7 % (0.0-1.0); EOSINOPHILS # (AUTO) 0.1 (0.0-0.4); EOSINOPHILS % 2.4 % (0.0-6.0); HEMOGLOBIN 10.1 g/dL (12.0-16.0); LYMPHOCYTES # (AUTO) 1.6 (1.0-3.2); LYMPHOCYTES % 36.1 % (18.0-39.1); MEAN CORPUSCULAR HEMOGLOBIN 28.4 pg (28-32); MEAN CORPUSCULAR HGB CONC 32.6 g/dL (31-35); MEAN CORPUSCULAR VOLUME 87.1 fL (81-99); MONOCYTES # (AUTO) 0.5 (0.2-0.8); MONOCYTES % 10.2 % (4.4-11.3); NEUTROPHILS # (AUTO) 2.3 (2.1-6.9); NEUTROPHILS % 50.4 % (38.7-80.0); PLATELET COUNT 290 x10e3/uL (140-360); RED BLOOD COUNT 3.56 x10e6/uL (3.6-5.1); RED CELL DISTRIBUTION WIDTH 15.1 % (11.7-14.4)
[2019-05-27 05:37] LABS: ALBUMIN 3.2 g/dL (3.5-5.0); ANION GAP 9.2 mmol/L (8-16); CALCIUM 9.3 mg/dL (8.4-10.2); CREATININE, SERUM 1.06 mg/dL (0.57-1.11); POTASSIUM 4.2 mmol/L (3.5-5.1)
[2019-05-27] MEDS ORDERED: SUMATRIPTAN SUCCINATE 25 MG TAB PO PRN (05:45)
[2019-05-27] MEDS: PROMETHAZINE 25MG/ NS 50ML (IV) IV PRN ×3 (06:15→21:55)
--- NOTE | 2019-05-27 06:31 | NUR ---
Dr. Spann making rounds at the bedside.
[2019-05-27] MEDS: PANTOPRAZOLE 40 MG 10ML VIAL IV SCH ×2 (07:53→17:46)
[2019-05-27] MEDS: SODIUM CHLORIDE 0.9% 1000ML 1,000 ML IV SCH ×2 (08:15→16:15)
--- NOTE | 2019-05-27 08:22 | NUR ---
OBS DAY 1 24 HRS UP AT 5PM GALLSTONES,UTI BARRIERS TO DC: SURGICAL EVAL AND HIDA UA AND BC PENDING
[2019-05-27] MEDS: D5.45%NS/KCL 20MEQ 1,000 ML IV SCH ×2 (10:04→17:46)
--- NOTE | 2019-05-27 10:22 | Consultation ---
DATE OF CONSULTATION: 05/27/2019 HISTORY OF PRESENT ILLNESS: The patient is a 44-year-old female, who was presented to the emergency room with complaints of right upper quadrant abdominal pain, which radiates to her back. She has had this pain for some time, became much worse yesterday. Evaluation has revealed gallstones, however, there are no definite signs of inflammation around the gallbladder. The patient apparently was hospitalized last month for acute renal failure, etiology of which is not clear. She has no symptoms of jaundice. Lab tests are normal this time. Liver function tests are also essentially normal except for slightly elevated alkaline phosphatase and GGT. PAST MEDICAL HISTORY: Significant for previous surgery for tubal ligation, surgery on her jaw, section. ALLERGIES: SHE HAS ALLERGY TO PENICILLIN. MEDICATIONS: At home were nortriptyline, Phenergan, tizanidine, tramadol, and Ambien. SOCIAL HISTORY: The patient does not smoke cigarettes or drink alcohol. REVIEW OF SYSTEMS: As stated above, otherwise was negative. PHYSICAL EXAMINATION: GENERAL: The patient is awake and alert. VITAL SIGNS: Reveal slight tachycardia, heart rate around 100. HEENT: Sclerae are not icteric. NECK: Supple. No masses. LUNGS: Equal breath sounds are clear bilaterally. CARDIAC: Regular rate and rhythm with no murmur. ABDOMEN: Soft. There is mild right upper quadrant tenderness. There is no mass. There is no organomegaly. There were no signs of peritonitis. EXTREMITIES: Have no edema. Pulses are palpable. NEUROLOGIC: Intact. LABS TEST: White blood count is normal, hemoglobin 10.1, hematocrit 31, differential is normal, and platelet count is normal. Chemistries are essentially normal except for diminished GFR. IMAGING STUDIES: Gallbladder ultrasound revealed gallstones. ASSESSMENT: A 44-year-old female with abdominal pain, this seems likely due to gallbladder disease or she has associated medical problems. She is to be evaluated further with a HIDA scan, this also suggests there is a gallbladder source of her pain and she will likely benefit from cholecystectomy. This was explained to the patient. Thank you for asking me to see Ms. Lowery. MD NATALIA Khan/IONA /[id number]
--- NOTE | 2019-05-27 11:08 | History and Physical ---
REASON FOR ADMISSION: Gallstones, abdominal pain, UTI. HISTORY OF PRESENT ILLNESS: The patient is a 44-year-old lady, well known to me, who presented with a couple of week history of abdominal pain, right upper quadrant area, where she had elevated liver function tests on laboratory data, that also showed evidence of gallstones on exam as well as evidence of urinary tract infection, so she is admitted for further evaluation and treatment. PAST MEDICAL HISTORY: Significant for anxiety and ADD. MEDICATIONS: See MAR. ALLERGIES: PENICILLIN. SOCIAL HISTORY: Nonsmoker. Nondrinker. Lives at home with her . FAMILY HISTORY: Hypertension. PHYSICAL EXAMINATION: VITAL SIGNS: Temperature is 96.1, pulse 89, blood pressure 139/84, saturations 99% on room air. GENERAL: She is in no apparent distress, lying in bed. NECK: Supple. CARDIOVASCULAR: Regular rate and rhythm. LUNGS: Clear to auscultation bilaterally. ABDOMEN: Soft with good bowel sounds, but she is tender in the right upper quadrant area. EXTREMITIES: No clubbing or cyanosis. NEUROLOGIC: Nonfocal. ASSESSMENT/PLAN: 1. Abdominal pain. Continue with pain control. 2. Gallstones. The ultrasound did not show any gallbladder thickening or sludging, fluid around it. So, we will go ahead and check a HIDA scan to get confirmation that her gallbladder is not performing well. 3. Urinary tract infection. Continue with her antibiotics and check culture when available. 4. Anxiety. Continue with her home medicines. 5. Reflux disease. Continue with her PPI. 6. Elevated liver function tests. We will monitor the blood tests. Please see hospital chart for full details. MD LEONEL Montgomery/IONA /[id number]
--- NOTE | 2019-05-27 12:21 | NUR ---
REFERRED TO R1 FOR STATUS DETERMINATION
--- NOTE | 2019-05-27 13:00 | NUR ---
Visit made by the Spiritual Care Department Pastoral Visitor, Milena Santos. Pt out of room and no family at bedside. A card was left at the bedside to indicate a missed visit from a member of the Spiritual Care team and to inform the pt and family of the availability of a [employer] Boot Top Assembler 24 hours a day/7 days a week. A mixer machine feeder will follow up as able. JAYLON TESFAYE Wader Boot Top Assembler Spiritual Care Department O: [phone] Pager: [phone] ([phone] number calling from)
[2019-05-27] MEDS ORDERED: LORAZEPAM INJ 2 MG/ML VIAL IV ONE (14:45)
[2019-05-27] MEDS: MORPHINE SULFATE INJ 4 MG/ML INJ 1ML IV PRN ×3 (15:24→17:48)
--- NOTE | 2019-05-27 16:35 | NUR ---
Dr. Spann called in to see if the pt. has had her Hida scan and it has not been read at this time. Order for clq dinner and N P O for midnight received. He reports he will call back later for results of the H i d a scan results.
--- NOTE | 2019-05-27 17:09 | Diagnostic Imaging Report ---
EXAM: HIDA Scan with Morphine Challenge INDICATION: RUQ pain Report: Following the administration of 6.6 mCi of Tc-99m mebrofenin, dynamic images of the abdomen in the anterior projection were obtained through 60 minutes. Morphine sulfate 3 mg was administered intravenously and additional images were obtained through 30 minutes. Perfusion of the liver is normal. Extraction of tracer from the blood pool by the liver parenchyma is normal. Tracer appears promptly with in the biliary tract. Tracer is seen in the small bowel by 15 minutes post injection of the tracer. The gallbladder does not fill during the initial 60 minutes of imaging but does fill promptly following administration of morphine. Impression: Filling of the gallbladder excludes acute cystic duct obstruction/acute cholecystitis. Signed by: Dr. Clare Santiago M.D. on 05/27/2019 5:05 PM
--- NOTE | 2019-05-27 19:13 | NUR ---
I spoke with Dr. Spann and gave HIDA scan results and no further orders received.
[2019-05-27] MEDS: ZOLPIDEM TARTRATE 10 MG TAB PO PRN (23:31)
[2019-05-28] VITALS (9 sets, daily range): BP systolic 123–146; BP diastolic 70–96
[2019-05-28] MEDS: SODIUM CHLORIDE 0.9% 1000ML 1,000 ML IV SCH ×4 (00:15→22:15)
[2019-05-28] MEDS: PROMETHAZINE 25MG/ NS 50ML (IV) IV PRN ×3 (03:10→21:50)
[2019-05-28] MEDS: HYDROMORPHONE 1MG/1ML INJ IV PRN ×3 (03:10→21:50)
[2019-05-28] MEDS: D5.45%NS/KCL 20MEQ 1,000 ML IV SCH ×2 (03:50→09:55)
[2019-05-28] MEDS: METRONIDAZOLE 500MG/NS 100ML 100 ML IV SCH (03:50)
[2019-05-28] MEDS ORDERED: LEVOFLOXACIN 500MG/D5W 100ML 100 ML IV SCH (06:30)
--- NOTE | 2019-05-28 07:00 | NUR ---
Rcvd patient in report this am. Patient is awake in bed at this time. no s/s of distress noted
--- NOTE | 2019-05-28 08:24 | Progress Note ---
DATE: SUBJECTIVE: The patient states she feels a little bit better, but still has some abdominal pain. HIDA scan was done that showed no filling of the gallbladder, but when she got the morphine . Ejection fraction was not calculated yet. OBJECTIVE: VITAL SIGNS: Stable. She is afebrile. GENERAL: No apparent distress. CARDIOVASCULAR: Regular rate and rhythm. LUNGS: Clear to auscultation bilaterally. ABDOMEN: Good bowel sounds. Soft, still slightly tender in the right upper quadrant area. EXTREMITIES: No clubbing or cyanosis. NEUROLOGIC: Nonfocal. ASSESSMENT/PLAN: 1. Abdominal pain. The patient may have chronic cholecystitis, but she does have gallstones, so she may benefit from going ahead and having the gallbladder removed, so we will defer to the surgeon. The patient is willing to have the surgery if Dr. Spann deems necessary. 2. Hypertension. Continue to monitor. 3. Elevated liver function tests. They have returned back to normal, so continue to monitor. Please see hospital chart for full details. MD LEONEL Montgomery/IONA /[id number]
--- NOTE | 2019-05-28 08:38 | NUR ---
clinical review done, pt for cholecystectomy today
[2019-05-28] MEDS: DIPHENHYDRAMINE HCL 25 MG CAP PO PRN ×2 (08:46→22:45)
[2019-05-28] MEDS ORDERED: BUPIVACAINE HCL 0.5% INJ 30 ML VIAL INJ ONE (11:06)
[2019-05-28] MEDS: PANTOPRAZOLE 40 MG 10ML VIAL IV SCH ×2 (11:07→17:09)
--- NOTE | 2019-05-28 11:07 | NUR ---
Patient went to OR at this time.
[2019-05-28] MEDS ORDERED: ONDANSETRON HCL INJ 2MG/ML 2ML 2 MG/ML VIAL IV PRN (12:15)
[2019-05-28] MEDS ORDERED: SUGAMMADEX SODIUM 200 MG/2 ML VIAL IV ONE (12:22)
[2019-05-28] MEDS ORDERED: HYDROMORPHONE 2MG/ML 2 MG/ML ML ONE (13:03)
[2019-05-28] MEDS ORDERED: MEPERIDINE HCL INJ 25 MG/ML VIAL ONE (13:23)
--- NOTE | 2019-05-28 13:40 | NUR ---
Patient returned from surgery at this time. Patient is post op lap medardo. 4 trochar sites clean dry and intact. Patient is crying in pain. PRN pain meds to to be given. Call placed to Dr. Livingston and new order for IV anxiety meds
[2019-05-28] MEDS: HYDROCODONE/APAP 5MG-325MG TAB PO PRN ×2 (14:07→19:53)
[2019-05-28] MEDS: LORAZEPAM INJ 2 MG/ML VIAL IV PRN (14:07)
[2019-05-28] MEDS: METRONIDAZOLE 500 MG TAB PO SCH ×2 (17:09→23:19)
[2019-05-28] MEDS ORDERED: ONDANSETRON HCL INJ 2MG/ML 2ML 2 MG/ML VIAL ONE (17:49)
[2019-05-28] MEDS ORDERED: GLYCOPYRROLATE INJ 1MG/ 5 ML SYR ONE (17:49)
[2019-05-28] MEDS ORDERED: PROPOFOL IV EMULSION 10 MG/ML 20 ML VIAL ONE (17:49)
[2019-05-28] MEDS ORDERED: ACETAMINOPHEN 1000 MG/100 ML IV ONE (17:49)
[2019-05-28] MEDS ORDERED: LIDOCAINE HCL 2% LOCAL INJ 5 ML SDV VIAL INJ ONE (17:49)
[2019-05-28] MEDS ORDERED: NEOSTIGMINE 5 MG/5ML SYR ONE (17:49)
[2019-05-28] MEDS ORDERED: DEXAMETHASONE SOD PHOS INJ 4 MG/ML VIAL ONE (17:49)
[2019-05-28] MEDS ORDERED: SEVOFLURANE INHAL SOLN 250 ML PEN BTL ONE (17:49)
[2019-05-28] MEDS ORDERED: ROCURONIUM BROMIDE 10 MG/ML 5ML VIAL ONE (17:49)
[2019-05-28] MEDS ORDERED: FENTANYL CITRATE/PF 100MCG/2 ML INJ ONE (18:17)
[2019-05-28] MEDS ORDERED: MIDAZOLAM HCL 2 MG/2 ML VIAL ONE (18:17)
[2019-05-28] MEDS ORDERED: MORPHINE SULFATE INJ 10 MG/ML ONE (18:17)
--- NOTE | 2019-05-28 18:33 | Operative Report ---
DATE OF PROCEDURE: 05/28/2019 SURGEON: Paolo Spann MD PREOPERATIVE DIAGNOSES: [id number] cholecystitis, cholelithiasis. POSTOPERATIVE DIAGNOSES: [id number] cholecystitis, cholelithiasis. PROCEDURES: Diagnostic laparoscopy, laparoscopic cholecystectomy. DIRECTOR OF INSTRUCTION: None. ANESTHESIA: General endotracheal. INDICATIONS AND FINDINGS: The patient is a 44-year-old female, admitted with complaints of abdominal pain, right upper quadrant. Workup revealed gallstones. Surgery based on the gallbladder was distended, containing multiple stones. Cystic duct was about 3 mm in diameter. Common bile duct was about 6 mm in diameter. Liver, stomach, and lower abdomen all appeared normal. TECHNIQUE: After adequate general endotracheal anesthesia and the patient in supine position, the abdomen was prepped and draped in sterile fashion with ChloraPrep solution. Skin in the umbilicus was infiltrated with 0.5% Marcaine. Incision was made in the umbilicus. Abdominal wall was elevated and Veress needle was introduced. Pneumoperitoneum was then created. A 10 mm trocar and cannula were then passed through the umbilical wound. Laparoscopic camera was introduced. Initial laparoscopy revealed gallbladder to be distended. Liver, stomach, and lower abdomen all appeared normal. A 10 mm trocar and cannula were placed in the epigastrium and two 5 mm trocars and cannulas were placed in the right upper quadrant. These were placed under direct vision. Fundus of the gallbladder was grasped and retracted superiorly. Neck of the gallbladder was grasped and retracted laterally. Peritoneum over the neck of the gallbladder was incised. The gallbladder cystic duct junction was dissected free. Cystic artery was also dissected free. The neck of the gallbladder was completely dissected free. Cystic artery was divided between hemoclips close to the gallbladder. Cystic duct was also divided between hemoclips with 3 clips being left on the common bile duct side. The gallbladder was dissected free from the liver using scissors and electrocautery. Once it was entirely free, it was placed into an Endopouch and brought through the epigastric cannula. There was at least one stone palpable. Gallbladder bed was inspected for hemostasis, which was seen to be adequate. It was irrigated with saline. All fluid aspirated and inspected for hemostasis, which was seen to be adequate. Instruments and cannulas were removed. Pneumoperitoneum was evacuated. Wounds were then closed. Fascia in the umbilical and epigastric wound closed with 0 Vicryl. Skin to all wounds closed with 4-0 Vicryl in subcuticular fashion. Sterile dressings applied to each wound. The patient tolerated the procedure well. Estimated blood loss was 10 mL. There were no complications. All counts were correct. The patient was taken to the recovery room in satisfactory condition. MD NATALIA Khan/IONA /[id number]
--- NOTE | 2019-05-28 22:00 | NUR ---
Assessment done.no resp.distress.4 trochar sites to abdomen.ambulates.uses ics. bed locked and in lowest position.phone and call light within reach.instructed to call for assistance as needed.
[2019-05-29] VITALS: BP 128/79
[2019-05-29] MEDS: ZOLPIDEM TARTRATE 10 MG TAB PO PRN (00:20)
[2019-05-29] MEDS: LORAZEPAM INJ 2 MG/ML VIAL IV PRN (00:50)
[2019-05-29 04:00] VITALS: BP 128/78
[2019-05-29] MEDS: HYDROMORPHONE 1MG/1ML INJ IV PRN (05:00)
[2019-05-29] MEDS: PROMETHAZINE 25MG/ NS 50ML (IV) IV PRN (05:06)
[2019-05-29] MEDS ORDERED: METRONIDAZOLE 500 MG TAB PO SCH (06:00)
[2019-05-29] MEDS: HYDROCODONE/APAP 5MG-325MG TAB PO PRN (06:59)
--- NOTE | 2019-05-29 07:00 | NUR ---
Bed side shift report given to the oncoming Rn.stable condition.
[2019-05-29] MEDS: PANTOPRAZOLE 40 MG 10ML VIAL IV SCH (07:46)
[2019-05-29] MEDS: SODIUM CHLORIDE 0.9% 1000ML 1,000 ML IV SCH (07:46)
[2019-05-29] MEDS ORDERED: LEVOFLOXACIN 500 MG TAB PO SCH (08:00)
[2019-05-29 08:16] VITALS: BP 138/83
[2019-05-29 08:21] VITALS: BP 138/83
[2019-05-29] MEDS ORDERED: NORCO 5-325 TA1 EACH PO (08:37)
[2019-05-29] MEDS ORDERED: DIFLUCAN150 MG PO (08:51)
--- NOTE | 2019-05-29 09:00 | NUR ---
DC INSTRUCTIONS AND PRESCRIPTIONS GIVEN PT VERBALIZED UNDERSTANDING IV DC PRESSURE DRESSING APPLIED AND TAPED
--- NOTE | 2019-05-29 09:15 | NUR ---
PT OFF UNIT VIA WHEEL CHAIR TO HOME
--- NOTE | 2019-05-29 10:46 | Progress Note ---
DATE: SUBJECTIVE: The patient is here for gallstone, status post cholecystectomy. She has been eating. No complains. Some abdominal distention, but no pain. No chest pain or shortness of breath. MEDICATIONS: 1. Diphenhydramine/. 2. Hydrocodone. 3. Hydromorphone as needed. 4. Lorazepam as needed. 5. Pantoprazole. 6. Sumatriptan. 7. Zolpidem. OBJECTIVE: VITAL SIGNS: Status post surgery day #1, temperature 97.2, pulse of 96, respirations of 20, blood pressure is 128/78, pulse oximetry of 98%. HEENT: Normocephalic and atraumatic. There is no icterus present. CVS: S1 and S2 normal. Regular rate and rhythm. ABDOMEN: Nontender, nondistended. Bowel sounds are positive. Trocar sites clean and dry. EXTREMITIES: No clubbing, no edema. LABORATORY VALUES: From yesterday, hemoglobin of 10.1, hematocrit of 31.0. Chemistries were normal. ASSESSMENT: Ms. Elizabeth Swanson is a 44-year-old female, status post laparoscopic cholecystectomy, continues to do well. The patient has good bowel sounds, can be discharged today. The patient to be followed up with Dr. Spann on a later date. Additional diagnosis includes nausea and vomiting, and also acute cholecystitis and anxiety. PLAN: Continue to monitor the patient. Further recommendation per clinical course and the patient can be followed out as an outpatient. MD PLACIDO Pérez/TRINOL /[id number]
--- NOTE | 2019-05-31 10:49 | Discharge Summary ---
DISCHARGE DIAGNOSIS: Gallstones, status post laparoscopic cholecystectomy. HISTORY OF PRESENT ILLNESS AND HOSPITAL COURSE: The patient is a lady, well known to me, who presented with some right upper quadrant abdominal pain, was found to have outpatient elevated liver function tests, where ultrasound showed gallstones and HIDA scan showed no radioactive uptake. So, she was seen by Dr. Spann, who performed a laparoscopic cholecystectomy without any complications. She did well postoperatively. She was able to be discharged home in good condition. She will follow up with me in 1 to 2 weeks as well as with Dr. Spann. Please see hospital chart for full details. MD LEONEL Montgomery/IONA /[id number]
== END 2019-05-29 09:19 | disposition home or self-care (01) ==
LOC: FSED 15:28 → ERHOLD 17:55 → IMCU 21:36 → MED/SURG 05-27 16:20
PROVIDERS: ADMIT Internal Medicine; ATTEND Internal Medicine
DX: K80.12 Calculus of gallbladder with acute and chronic cholecystitis without obstruction (principal); N10 Acute pyelonephritis; Z88.0 Allergy status to penicillin; E03.9 Hypothyroidism, unspecified; E87.6 Hypokalemia; F41.9 Anxiety disorder, unspecified; K21.9 Gastro-esophageal reflux disease without esophagitis; R79.89 Other specified abnormal findings of blood chemistry; R74.8 Abnormal levels of other serum enzymes; F98.8 Other specified behavioral and emotional disorders with onset usually occurring in childhood and adolescence; I10 Essential (primary) hypertension
CPT/HCPCS: 36415; 47562; 76705; 78227; 80048; 80053 ×2; 80076; 81001; 81003; 81025 ×2; 82150; 83605 ×2; 83690; 85025; 87040; 87086; 88304; 93005; 99284; A9537; C9113 ×3; G0378 ×4; J0131; J1100; J1170 ×5; J1956 ×2; J2001; J2060 ×4; J2175; J2250; J2270 ×3; J2405 ×3; J2550 ×3; J2704; J3010; J3490; J7030 ×2

== ENCOUNTER 2023-11-12 18:25 | Emergency (ER) | payer OTHER ==
[~2023-11-12] VITALS: Ht 167.6 cm; Wt 79.4 kg
[~2023-11-12 18:25] MED LIST changes: +DIFLUCAN150 MG PO; +NORCO 5-325 TA1 EACH PO
[2023-11-12] MEDS ORDERED: IBUPROFEN600 MG PO (18:40)
[2023-11-12] MEDS ORDERED: CLINDAMYCIN HC300 MG PO (19:39)
[2023-11-12 20:01] VITALS: BP 127/84; PULSE 72; RESP 18; TEMP 97.6; O2SAT 98
== END 2023-11-12 19:51 | disposition home or self-care (01) ==
LOC: FSED 18:28
DX: K04.7 Periapical abscess without sinus (principal); K02.9 Dental caries, unspecified; E03.9 Hypothyroidism, unspecified; D64.9 Anemia, unspecified; M54.2 Cervicalgia; G47.00 Insomnia, unspecified; M54.9 Dorsalgia, unspecified; G89.29 Other chronic pain
CPT/HCPCS: 99283